=== PATIENT | male | born 1960 | race Caucasian/White ===

== ENCOUNTER 2023-05-06 10:07 | Emergency (ER) | payer OTHER, SELFPAY ==
[2023-05-06] VITALS (9 sets, daily range): BP systolic 68–151; BP diastolic 57–98; BMI 37.3
--- NOTE | 2023-05-06 11:00 | EDRN ---
the pt reports to this CREDIT CASHIER that on 04/25/23 he had radiation pellets placed in his liver. this CREDIT CASHIER contacted the lab and questioned what the proper procedure is for sending down blood and urine specimens for this pt due to the presence of
radiation pellets in his liver. agricultural technician sent up yellow caution stickers via pneumatic tube system for this CREDIT CASHIER to place on the biohazard specimen bags. agricultural technician also reported to this CREDIT CASHIER that she would notify the other lab techs of above. the
pts blood and urine specimen were collected and sent down to the lab by this CREDIT CASHIER as instructed.
--- NOTE | 2023-05-06 11:02 | ED.GENMED ---
History of Present Illness
<Kimberley Barrow PA-C - Last Filed: 05/07/23 09:06>
General
Chief Complaint: Back Pain
Source: patient
Exam Limitations: none
Time Seen by Provider: 05/06/23 10:31
Nursing documentation reviewed up to this point in time: agreed with
Travel History
Have you had any contact with someone who has COVID-19?: No
Do you have any symptoms of coronavirus? Fever > 100 degrees, chills, cough, shortness of breath, sore throat, loss of taste or smell, muscle aches, or headache?: No
History of Present Illness
History of Present Illness:
pt is a 62 y/o M with h /o remote alcohol abuse, esophageal varices s/p banding, hep c, s/p TIPS procedure, now with HCC
recently had procedure 04/24 for radiation treatment (hepatic artery radioembolization) nellie wei
says that a few days later he saw dr. trejo here for GI and at the time was telling him that he had some bloating in his lower abdomen that was minimal. pt says that he has had resolution of the bloated feeling but 3 days ago started getting R sided
back pain which is worse with changing positions
he took tylenol 650 mg bid which at this point isn't helping
his pain is worse with movement/sitting up and with deep breathing but he doesn't feel SOB
no urinary discoloration
pt called the office of nellie SPENCER andwas told to go to the ER to check for the cause of this pain
pt has not had any fever, chills, cp, sob, vomiting, diarrhea
Past History
<Kimberley Barrow PA-C - Last Filed: 05/07/23 09:06>
Past History
ED Past Medical History: Other (Hepatitis C with cirrhosis, ascites)
ED Past Surgical History: None
Social History
Tobacco: Smoker (has not in last 5 days)
Alcohol: Former (last was 10/2014)
Drug: None
Personal: Single
Living: with family
Review of Systems
<Kimberley Barrow PA-C - Last Filed: 05/07/23 09:06>
Review of Systems
Allergies reviewed?: Yes
All Other Systems: Not applicable
Phy Exam
<Kimberley Barrow PA-C - Last Filed: 05/07/23 09:06>
Physical Exam
Physical Exam:
GENERAL: Alert , in no apparent distress
EYE: pupils equal and reactive
NECK: Supple
ENT: o/p clr, mmm.
CARDIAC: Regular rate and rhythm .
LUNGS: Clear breath sounds bilaterally, no acute respiratory distress, no wheezes/rales/rhonchi
ABDOMEN: Soft, distended some ascites; periumbilical slight pink skin
mild RUQ tenderness
no guarding, nontender
no rebound
soft
back: right lower lateral lumbar tenderness
NEUROLOGICAL: Alert and oriented, no focal neuro deficits
SKIN: Warm and dry, skin intact.
erythatmeous papular rash to back;
MUSCULOSKELETAL: No edema, well perfused.
PSYCH: Normal and appropriate interaction.
Course
<Kimberley Barrow PA-C - Last Filed: 05/07/23 09:06>
Orders/Labs/Results
Orders:
Orders
05/06/23 10:57
CT Abd/Pel (IV only)-DH only Urgent
Comment:
Reason For Exam: right back pain; h/o hepatic artery radioembolizat
HYDROmorphone [Dilaudid] 0.5 mg IV NOW STA
05/06/23 11:13
Complete Blood Count/With Diff Urgent
Comprehensive Metabolic Panel Urgent
Lipase Urgent
PTT Urgent
Prothrombin Time Urgent
Urinalysis Reflex To Culture Urgent
Date Specimen was Collected: 05/06/23
Time Specimen was Collected: 11:01
05/06/23 14:45
Consult Interventional Radiology [IRAD CONSULT] Urgent
Consulting Provider: Ramsey Ordoñez
Was physician already notified: Yes
Reason for consult: para
05/06/23 15:35
Body Fluid Albumin Urgent
Fluid Source: Peritoneal (Ascites)
Date Specimen was Collected: 05/06/23
Time Specimen was Collected: 15:32
Body Fluid Amylase Urgent
Fluid Source: Peritoneal (Ascites)
Date Specimen was Collected: 05/06/23
Time Specimen was Collected: 15:32
Body Fluid Cell Count Urgent
What is the Body Fluid: peritoneal fluid
Date Specimen was Collected: 05/06/23
Time Specimen was Collected: 15:32
Comment: post procedure
Body Fluid LDH Urgent
Fluid Source: Peritoneal (Ascites)
Date Specimen was Collected: 05/06/23
Time Specimen was Collected: 15:32
Body Fluid Protein Urgent
Fluid Source: Peritoneal (Ascites)
Date Specimen was Collected: 05/06/23
Time Specimen was Collected: 15:32
Fluid Culture with Gram Stain Urgent
WINDY Source: Peritoneal Fluid
Specimen Description:
Date Specimen was Collected: 05/06/23
Time Specimen was Collected: 15:32
Comment: Post Procedure
Abnormal Lab Results
05/06/23
11:13
RDW 15.7 H %
(11.5-14.5)
MPV 11.3 H fL
(7.4-10.4)
Absolute Lymphs (auto) 0.2 L 10^3/uL
(1.2-3.4)
Absolute Monos (auto) 0.7 H 10^3/uL
(0.1-0.6)
Neutrophils % 83.0 H %
(42.2-75.2)
Lymphocytes % 2.6 L %
(20.5-51.1)
Monocytes % 11.9 H %
(1.7-9.3)
PT 15.1 H Sec
(11.4-14.6)
Sodium 134 L mmol/L
(135-145)
Creatinine 0.6 L mg/dL
(0.7-1.3)
Total Bilirubin 1.9 H mg/dl
(0.2-1.3)
AST 152 H U/L
(17-59)
ALT 89 H U/L
(0-50)
Alkaline Phosphatase 134 H U/L
(38-126)
Total Protein 6.2 L g/dl
(6.3-8.2)
Albumin 3.1 L g/dl
(3.5-5.0)
Lipase 314 H U/L
(23-300)
Urine Urobilinogen 2+ A
(Neg - 1+)
05/06/23 11:13
05/06/23 11:13
Vital Signs
Initial and Last Documented VS:
Initial Vital Signs
Temp Pulse Resp BP Pulse Ox
98.2 F 66 16 123/93 98
05/06/23 10:17 05/06/23 10:17 05/06/23 10:17 05/06/23 10:17 05/06/23 10:17
Last Documented Vital Signs
Temp Pulse Resp BP Pulse Ox
97.8 F 63 17 117/58 93
05/06/23 15:26 05/06/23 17:00 05/06/23 17:00 05/06/23 17:00 05/06/23 17:00
<JASON Kate - Last Filed: 05/06/23 23:22>
Orders/Labs/Results
Orders:
Orders
05/06/23 10:57
CT Abd/Pel (IV only)-DH only Urgent
Comment:
Reason For Exam: right back pain; h/o hepatic artery radioembolizat
HYDROmorphone [Dilaudid] 0.5 mg IV NOW STA
05/06/23 11:13
Complete Blood Count/With Diff Urgent
Comprehensive Metabolic Panel Urgent
Lipase Urgent
PTT Urgent
Prothrombin Time Urgent
Urinalysis Reflex To Culture Urgent
Date Specimen was Collected: 05/06/23
Time Specimen was Collected: 11:01
05/06/23 14:45
Consult Interventional Radiology [IRAD CONSULT] Urgent
Consulting Provider: Ramsey Ordoñez
Was physician already notified: Yes
Reason for consult: para
05/06/23 15:35
Body Fluid Albumin Urgent
Fluid Source: Peritoneal (Ascites)
Date Specimen was Collected: 05/06/23
Time Specimen was Collected: 15:32
Body Fluid Amylase Urgent
Fluid Source: Peritoneal (Ascites)
Date Specimen was Collected: 05/06/23
Time Specimen was Collected: 15:32
Body Fluid Cell Count Urgent
What is the Body Fluid: peritoneal fluid
Date Specimen was Collected: 05/06/23
Time Specimen was Collected: 15:32
Comment: post procedure
Body Fluid LDH Urgent
Fluid Source: Peritoneal (Ascites)
Date Specimen was Collected: 05/06/23
Time Specimen was Collected: 15:32
Body Fluid Protein Urgent
Fluid Source: Peritoneal (Ascites)
Date Specimen was Collected: 05/06/23
Time Specimen was Collected: 15:32
Fluid Culture with Gram Stain Urgent
WINDY Source: Peritoneal Fluid
Specimen Description:
Date Specimen was Collected: 05/06/23
Time Specimen was Collected: 15:32
Comment: Post Procedure
Abnormal Lab Results
05/06/23
11:13
RDW 15.7 H %
(11.5-14.5)
MPV 11.3 H fL
(7.4-10.4)
Absolute Lymphs (auto) 0.2 L 10^3/uL
(1.2-3.4)
Absolute Monos (auto) 0.7 H 10^3/uL
(0.1-0.6)
Neutrophils % 83.0 H %
(42.2-75.2)
Lymphocytes % 2.6 L %
(20.5-51.1)
Monocytes % 11.9 H %
(1.7-9.3)
PT 15.1 H Sec
(11.4-14.6)
Sodium 134 L mmol/L
(135-145)
Creatinine 0.6 L mg/dL
(0.7-1.3)
Total Bilirubin 1.9 H mg/dl
(0.2-1.3)
AST 152 H U/L
(17-59)
ALT 89 H U/L
(0-50)
Alkaline Phosphatase 134 H U/L
(38-126)
Total Protein 6.2 L g/dl
(6.3-8.2)
Albumin 3.1 L g/dl
(3.5-5.0)
Lipase 314 H U/L
(23-300)
Urine Urobilinogen 2+ A
(Neg - 1+)
05/06/23 11:13
05/06/23 11:13
Vital Signs
Initial and Last Documented VS:
Initial Vital Signs
Temp Pulse Resp BP Pulse Ox
98.2 F 66 16 123/93 98
05/06/23 10:17 05/06/23 10:17 05/06/23 10:17 05/06/23 10:17 05/06/23 10:17
Last Documented Vital Signs
Temp Pulse Resp BP Pulse Ox
97.8 F 63 17 117/58 93
05/06/23 15:26 05/06/23 17:00 05/06/23 17:00 05/06/23 17:00 05/06/23 17:00
<Kimberley Barrow PA-C - Last Filed: 05/07/23 09:06>
MDM/Problems Addressed
Differential Diagnosis Includes:
kidney stone, back pain, kidney injury, retroperitoneal hemorrhage, less likely SBP
MDM/Problems Addressed:
62 y/o M with h/o long standing cirrhosis, s/p TIPS, s/p esophageal banding
also semi recently dx with HCC
just had hepatic artery radioembolization 04/24
has had 3 days right sided lower back pain nonradiating
worse with changin position
he has chronic abdomianl distensino without increasing swelling/ascites
no fever, chills
pain is worse with movement and changing positino
caled the IR office and was instructed to come get evlauated
pt has bee followed by dr. trejo who is a [facility]/regulatory affairs coordinator who has office in [place]
he last saw ashlyn on 04/28.
pt was not having the pain at the time
no relief with tylenol
here he has a protuberant abdomen, with some ascites, soft, nontender, very faint pink skin changes to periumbilical region
moderate right lower back tenderness and pain with movement
normal strength/sensation IN LEGS
PT was seen by ed attending who felt that we should speak with his GI whom i spoke with dr. trejo
he reviewed my findings and labs and ct via phone and felt that we should do a diagonstic para to r/o SBP and if neg, d/c home
pt was reassessed at 1500 and feels ok lying on his left side pain returns if he moves
he was offered admission but would decline unless he needs it
do not suspect PE on this patient destpie pain being worse with deep breathing
seems MSK
signed out to obey BUSTOS 1600
<JASON Kate - Last Filed: 05/06/23 23:22>
MDM/Problems Addressed
MDM/Problems Addressed:
62 y/o M with h/o long standing cirrhosis, s/p TIPS, s/p esophageal banding
also semi recently dx with HCC
just had hepatic artery radioembolization 04/24
has had 3 days right sided lower back pain nonradiating
worse with changin position
he has chronic abdomianl distensino without increasing swelling/ascites
no fever, chills
pain is worse with movement and changing positino
caled the IR office and was instructed to come get evlauated
pt has bee followed by dr. trejo who is a [facility]/regulatory affairs coordinator who has office in [place]
he last saw hin on 04/28.
pt was not having the pain at the time
no relief with tylenol
here he has a protuberant abdomen, with some ascites, soft, nontender, very faint pink skin changes to periumbilical region
moderate right lower back tenderness and pain with movement
normal strength/sensation IN LEGS
PT was seen by ed attending who felt that we should speak with his GI whom i spoke with dr. trejo
he reviewed my findings and labs and ct via phone and felt that we should do a diagonstic para to r/o SBP and if neg, d/c home
pt was reassessed at 1500 and feels ok lying on his left side pain returns if he moves
he was offered admission but would decline unless he needs it
do not suspect PE on this patient destpie pain being worse with deep breathing
seems MSK
signed out to obey BUSTOS 1600
[id number]: received sign out. Pt back from IR. requesting to eat in no distress. Fluid WBC 150 fluid total protein less than 2.0 g/dL fluid albumin less than 1.0 g/dL fluid LDH less than 90 U/L. Patient currently only feels discomfort with twisting
turning likely muscular will send Flexeril to pt's pharmacy . Shakira GOMEZ
<JASON Kate - Last Filed: 05/06/23 23:22>
*Critical Care Note
Total Time (30-74mins, 75-104mins- exclusive of procedures): Not Applicable
ED Attending Note
<Kimberley Barrow PA-C - Last Filed: 05/07/23 09:06>
-
Portions of this chart may have been created with voice recognition software.� Occasional wrong word or��sound alike� substitutions may have occurred due to the inherent limitations of voice recognition software.
Discharge Plan
Departure
Patient Disposition: Home (Routine Discharge)
Date of Disposition: 05/06/23
Time of Disposition: 17:17
Patient with high blood pressure during this ER visit?: No
Condition: Fair
Covid-19: Not Applicable
Discharge Problem:
Back pain
Instructions: Back Pain, BLOOD PRESSURE
Prescriptions:
New
cyclobenzaprine 10 mg tablet
10 mg PO TID PRN (Reason: muscle spasm) Qty: 10 0RF
No Action
ciprofloxacin HCl 250 MG tablet
250 mg PO DAILY
Referrals:
Ranjeet Parnell DO [Family Provider] -
Activity Restrictions/Additional Instructions:
As discussed a prescription for Flexeril was sent to pharmacy. Take as directed.
Follow-up with family doctor in the next several days and also get in touch for follow up with your GI specialist at [facility]. Return to the ER if any worsening of symptoms of worsening pain shortness of breath nausea vomiting fever chills or
any further concerns
Interventions
Interventions:
*Risk Screen - Suicide Last Done: 05/06/23 10:20
*General Assessment Last Done: 05/06/23 10:20
*Neglect/Abuse Screening Last Done: 05/06/23 10:20
*ED COVID-19 Vaccine History Last Done: 05/06/23 11:24
*Nursing Disposition Last Done: 05/06/23 17:38
ED-Musculoskeletal Assessment Last Done: 05/06/23 11:24
Discharge Date and Time
Discharge Date/Time: 05/06/23 17:41
[2023-05-06] MEDS: DILAUDID 0.5 MG IV (11:18)
[2023-05-06 11:24] LABS: % Basophils 0.7 % (0-2); % Eosinophils 1.3 % (0-6); % Immature Granulocytes 0.5 % (0-0.5); % Lymphocytes 2.6 % (20.5-51.1); % Monocytes 11.9 % (1.7-9.3); Absolute Eosinophils 0.1 10^3/uL (0-0.7); Absolute Lymphocytes 0.2 10^3/uL (1.2-3.4); Absolute Monocytes 0.7 10^3/uL (0.1-0.6); Hematocrit 40.1 % (39.0-52.0); Mean Corp Hgb Conc. 34.9 g/dL (33.0-37.0); Mean Corpuscular Hgb 29.8 pg (27.0-31.0); Mean Corpuscular Volume 85.3 fL (80.0-94.0); Mean Platelet Volume 11.3 fL (7.4-10.4); Nucleated Red Blood Cells % 0 % (-); Platelet Count 133 10^3/uL (130-400); Red Cell Dist. Width 15.7 % (11.5-14.5); White Blood Cell Count 6.1 10^3/uL (4.8-10.8)
[2023-05-06 11:27] LABS: Urine Albumin Negative (Neg - Trace); Urine Bilirubin Negative (Negative); Urine Character Clear (Clear); Urine Color Yellow; Urine Glucose Negative (Negative); Urine Ketone Negative (Negative); Urine Leukocyte Negative (Negative); Urine Nitrite Negative (Negative); Urine Occult Blood Negative (Negative); Urine Specific Gravity 1.015 (<1.030); Urine Urobilinogen 2+ (Neg - 1+); Urine pH 6.5 (5.0-9.0)
[2023-05-06 11:41] LABS: INR 1.21; PT 15.1 Sec (11.4-14.6)
[2023-05-06 11:42] LABS: ALT (SGPT) 89 U/L (0-50); AST (SGOT) 152 U/L (17-59); Albumin 3.1 g/dl (3.5-5.0); Alkaline Phosphatase 134 U/L (38-126); Blood Urea Nitrogen 11 mg/dl (9-20); Calcium 8.5 mg/dl (8.4-10.2); Carbon Dioxide 24 mmol/L (22-30); Chloride 107 mmol/L (98-107); Estimated Creatinine Clearance > 125 ml/min; Glucose 99 mg/dl (70-99); Lipase 314 U/L (23-300); Potassium 4.2 mmol/L (3.5-5.1); Sodium 134 mmol/L (135-145); Total Bilirubin 1.9 mg/dl (0.2-1.3); Total Protein 6.2 g/dl (6.3-8.2); eGFR > 60.00
[2023-05-06 11:48] LABS: APTT 34.3 Sec (23.4-35.0)
[2023-05-06 15:58] LABS: Body Fluid Mononuclear 61.4 %; Body Fluid Polymorphonuclear 38.6 %; Body Fluid WBC 150 /CUMM
[2023-05-06 16:01] LABS: Body Fluid Second Tech BD
[2023-05-06 16:13] LABS: Body Fluid Albumin < 1.0 g/dl; Body Fluid Amylase < 30 U/L; Body Fluid LDH < 90 U/L; Body Fluid Protein < 2.0 g/dl
--- NOTE | 2023-05-06 17:04 | EDRN ---
the pt returned from Interventional Radiology while this CHAPERON was in another critically ill patients room. this CHAPERON did not receive any handoff reports from IR RN and found IR paperwork sitting at this ER RNs desk. The community artist was given
paperwork to scan into this patients electronic chart. this CHAPERON checked this pts paracentesis site in his RLQ abdomen. no bruising, swelling, or drainage noted. the bandage remains intact. the pt denies any complaints. ER JASON Nance was
notified of above. will continue to monitor the pt.
== END 2023-05-06 17:41 | disposition home or self-care (01) ==
LOC: EMR 10:07
PROVIDERS: Physician Assistant; CONSULT PHYSICIAN Radiology Vascular & Interventional Radiology; EMERGENCY PHYSICIAN Emergency Medicine; FAMILY PHYSICIAN Family Medicine
DX: M54.9 Dorsalgia, unspecified (principal); C22.0 Liver cell carcinoma
CPT/HCPCS: 99284; 96374; 49083; 74177; 80053; 81003; 82042; 82150; 83615; 83690; 84157; 85025; 85610; 85730; 87015; 87070; 87205; 89051; Q9967

== ENCOUNTER 2023-05-09 07:56 | Emergency (ER) | payer OTHER, SELFPAY ==
[2023-05-09 07:58] VITALS: BP 153/90
[2023-05-09 09:00] VITALS: BP 145/73
--- NOTE | 2023-05-09 09:17 | ED.GENMED ---
History of Present Illness
General
Chief Complaint: Abdominal Symptoms
Source: patient
Exam Limitations: none
Time Seen by Provider: 05/09/23 08:09
Nursing documentation reviewed up to this point in time: agreed with
Travel History
Have you had any contact with someone who has COVID-19?: No
Do you have any symptoms of coronavirus? Fever > 100 degrees, chills, cough, shortness of breath, sore throat, loss of taste or smell, muscle aches, or headache?: No
History of Present Illness
History of Present Illness:
Patient with history of liver cirrhosis, status post outpatient therapeutic paracentesis 3 days ago, presents to ED secondary to continual right-sided abdominal pain, for which he was evaluated in ED last week. Denies fever or chills. Abdominal
pain described as sharp, nonradiating, without any alleviating or exacerbating factors. Denies loss of appetite. Denies trauma. Denies difficulty with urination. Patient is concerned that he may have a 'pocket of fluid', which may need to be
drained.
Past History
Past History
ED Past Medical History: Other (Hepatitis C with cirrhosis, ascites)
ED Past Surgical History: None
Social History
Tobacco: Smoker (has not in last 5 days)
Alcohol: Former (last was 10/2014)
Drug: None
Personal: Single
Living: with family
Review of Systems
Review of Systems
Allergies reviewed?: Yes
All Other Systems: ROS reviewed and negative except as documented in HPI and ROS
Constitutional: Reports no symptoms
EENT: Reports no symptoms
Respiratory: Reports no symptoms
Cardiac: Reports no symptoms
ABD/GI: Reports abdominal pain; Denies nausea, vomiting or diarrhea
: Reports no symptoms; Denies frequency, flank pain or difficulty voiding
Musculoskeletal: Reports no symptoms
Skin: Reports no symptoms
Neurological: Reports no symptoms
Phy Exam
Physical Exam
Physical Exam:
Physical Exam
General: no apparent distress, not acutely ill. afebrile
Head: nc/at. eomi
Neck: supple. normal range of motion
Abdomen: normal bowel sounds. mild RUQ tenderness to palpation. no distention
Neuro: alert and oriented. no focal neurological deficits
Skin: no rash
Psychiatric: well kept. interactive and cooperative
Extremities: no edema. no calf tenderness.
Course
Orders/Labs/Results
Orders:
Orders
05/09/23 08:36
US Abdomen Complete/Upper Urgent
Comment:
Reason For Exam: RUQ pain
Vital Signs
Initial and Last Documented VS:
Initial Vital Signs
Temp Pulse Resp BP Pulse Ox
97.8 F 90 16 153/90 98
05/09/23 07:58 05/09/23 07:58 05/09/23 07:58 05/09/23 07:58 05/09/23 07:58
Last Documented Vital Signs
Temp Pulse Resp BP Pulse Ox
97.8 F 94 20 155/78 98
05/09/23 07:58 05/09/23 11:00 05/09/23 11:00 05/09/23 11:00 05/09/23 11:00
MDM/Problems Addressed
MDM/Problems Addressed:
History and exam, along with abdominal ultrasound confirms likely biliary colic. Otherwise, patient is afebrile, hemodynamically stable, and nontoxic. Patient will be given information for outpatient consultation with general surgery for
reevaluation. Advised to return to ED with worsening symptoms, i.e. fever/worsening pain/vomiting. Patient expresses understanding at time of discharge.
*Critical Care Note
Total Time (30-74mins, 75-104mins- exclusive of procedures): Not Applicable
ED Attending Note
-
Portions of this chart may have been created with voice recognition software.� Occasional wrong word or��sound alike� substitutions may have occurred due to the inherent limitations of voice recognition software.
Discharge Plan
Departure
Patient Disposition: Home (Routine Discharge)
Date of Disposition: 05/09/23
Time of Disposition: 11:34
Patient with high blood pressure during this ER visit?: Yes
Discharge Problem:
Biliary colic
Instructions: Low Cholesterol, Saturated Fat, and Trans Fat Diet , Gallstones (DC)
Prescriptions:
No Action
lisinopril 30 mg Tablet
30 mg PO DAILY
Referrals:
Ranjeet Parnell DO [Family Provider] -
Grant Parker MD [Active] -
Activity Restrictions/Additional Instructions:
As discussed, please follow-up with your primary care physician and or referred general surgeon for further evaluation and treatment. Please return to ED with worsening symptoms, i.e. fever/worsening pain/vomiting.
Interventions
Interventions:
*Risk Screen - Suicide Last Done: 05/09/23 11:54
*General Assessment Last Done: 05/09/23 09:00
*Neglect/Abuse Screening Last Done: 05/09/23 09:00
*ED COVID-19 Vaccine History Last Done: 05/09/23 07:58
*Nursing Disposition Last Done: 05/09/23 11:54
IH-Wxrzue-Kbdusxakdd Assessment Last Done: 05/09/23 09:00
Discharge Date and Time
Discharge Date/Time: 05/09/23 11:54
[2023-05-09 11:00] VITALS: BP 155/78
== END 2023-05-09 11:54 | disposition home or self-care (01) ==
LOC: EMR 07:56
PROVIDERS: EMERGENCY PHYSICIAN Emergency Medicine; FAMILY PHYSICIAN Family Medicine
DX: K80.70 Calculus of gallbladder and bile duct without cholecystitis without obstruction (principal); K74.60 Unspecified cirrhosis of liver; F17.200 Nicotine dependence, unspecified, uncomplicated
CPT/HCPCS: 99284; 76700

== ENCOUNTER → 2023-06-07 08:00 | Outpatient (REF) | payer OTHER, SELFPAY ==
[2023-06-07 08:15] VITALS: BP 160/82; BP_SYST 72
[2023-06-07 08:51] VITALS: BP 137/78
[2023-06-07 09:21] LABS: Body Fluid Mononuclear 63.3 %; Body Fluid Polymorphonuclear 36.7 %; Body Fluid WBC 49 /CUMM
[2023-06-07 09:25] LABS: Body Fluid Second Tech AMA
== END ==
LOC: RADI 08:00
PROVIDERS: ATTENDING PHYSICIAN Internal Medicine Transplant Hepatology
DX: R18.8 Other ascites (principal)
CPT/HCPCS: 49083; 87015; 87070; 87205; 89051

== ENCOUNTER → 2023-06-08 12:51 | Outpatient (REF) | payer OTHER, SELFPAY | LOC: RAD 12:51 | PROVIDERS: ATTENDING PHYSICIAN Internal Medicine Transplant Hepatology; FAMILY PHYSICIAN Family Medicine | DX: Z95.828 Presence of other vascular implants and grafts (principal) | CPT/HCPCS: 93975 ==

== ENCOUNTER → 2023-07-12 08:02 | Outpatient (REF) | payer OTHER, SELFPAY | LOC: MRI 08:02 | PROVIDERS: ATTENDING PHYSICIAN Nurse Practitioner Acute Care; FAMILY PHYSICIAN Family Medicine | DX: C22.0 Liver cell carcinoma (principal) | CPT/HCPCS: 74183; A9581 ==

== ENCOUNTER → 2023-09-20 09:02 | Outpatient (REF) | payer OTHER, SELFPAY | LOC: HWRAD 09:02 | PROVIDERS: ATTENDING PHYSICIAN Nurse Practitioner Acute Care; FAMILY PHYSICIAN Family Medicine; REFERRING PHYSICIAN Radiology Diagnostic Radiology | DX: C22.0 Liver cell carcinoma (principal) | CPT/HCPCS: 71250 ==

== ENCOUNTER → 2023-10-10 11:59 | Outpatient (REF) | payer OTHER, SELFPAY | LOC: MRI 3T 11:59 | PROVIDERS: ATTENDING PHYSICIAN Radiology Diagnostic Radiology; FAMILY PHYSICIAN Family Medicine | DX: C22.0 Liver cell carcinoma (principal) | CPT/HCPCS: 74183; A9581 ==

== ENCOUNTER 2024-02-11 00:04 | Inpatient (IN) | payer OTHER, SELFPAY ==
[2024-02-10] VITALS (8 sets, daily range): BP systolic 105–152; BP diastolic 53–84; BMI 34.4
[2024-02-10 14:59] LABS: % Basophils 0.6 % (0-2); % Eosinophils 0.9 % (0-6); % Immature Granulocytes 4.1 % (0-0.5); % Lymphocytes 3.1 % (20.5-51.1); % Monocytes 8.5 % (1.7-9.3); % Neutrophils 82.8 % (42.2-75.2); Absolute Basophils 0.1 10^3/uL (0-0.2); Absolute Eosinophils 0.1 10^3/uL (0-0.7); Absolute Immature Granulocytes 0.6 10^3/uL (0-0.05); Absolute Lymphocytes 0.5 10^3/uL (1.2-3.4); Absolute Monocytes 1.3 10^3/uL (0.1-0.6); Absolute Neutrophils 12.8 10^3/uL (1.4-6.5); Hematocrit 36.4 % (39.0-52.0); Hemoglobin 12.3 g/dL (13.0-18.0); Mean Corp Hgb Conc. 33.8 g/dL (33.0-37.0); Mean Corpuscular Hgb 29.2 pg (27.0-31.0); Mean Corpuscular Volume 86.5 fL (80.0-94.0); Nucleated Red Blood Cells % 0 % (-); Platelet Count 396 10^3/uL (130-400); Red Blood Cell Count 4.21 10^6/uL (4.70-6.10); Red Cell Dist. Width 16.5 % (11.5-14.5); White Blood Cell Count 15.5 10^3/uL (4.8-10.8)
[2024-02-10 15:06] LABS: INR 1.22; PT 15.9 Sec (11.4-14.6)
[2024-02-10 15:07] LABS: APTT 37.6 Sec (23.4-35.0)
[2024-02-10 15:16] LABS: COVID-19 Antigen Negative (Negative)
[2024-02-10 15:18] LABS: ALT (SGPT) 26 U/L (0-50); AST (SGOT) 46 U/L (17-59); Albumin 2.7 g/dl (3.5-5.0); Alkaline Phosphatase 195 U/L (38-126); Blood Urea Nitrogen 9 mg/dl (9-20); Calcium 7.9 mg/dl (8.4-10.2); Carbon Dioxide 24 mmol/L (22-30); Chloride 102 mmol/L (98-107); Glucose 80 mg/dl (70-99); Sodium 133 mmol/L (135-145); Total Bilirubin 18.3 mg/dl (0.2-1.3); Total Protein 6.6 g/dl (6.3-8.2); eGFR > 60.00
--- NOTE | 2024-02-10 20:21 | ED.GENMED ---
History of Present Illness
<Leanna Padilla MD - Last Filed: 02/10/24 20:22>
General
Chief Complaint: Breathing Problem
Time Seen by Provider: 02/10/24 19:15
<Dean Garcia PA-C - Last Filed: 02/10/24 23:25>
General
Source: patient
History of Present Illness
History of Present Illness:
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
and abnormal stools that been ongoing for around 1 week stating that when this all initially started his stools were very dark in color and then became white in color and then intermixed with both. Patient also notes that he had a fever for the
last 5 days with a Tmax of 101, today did not have any fever and did not take any medications for this. Patient is scheduled to undergo an MRI for monitoring of his liver cancer and TIPS procedure this coming Tuesday and he had been in contact with
his long-term providers at [facility] about his symptoms and was recommended to come to the ER for further evaluation. Patient also notes that his urine is a little bit darker in color and that he is jaundiced. He is presently denying any
associated abdominal pain, vomiting, urinary frequency/urgency or dysuria.
Past History
<Leanna Padilla MD - Last Filed: 02/10/24 20:22>
Past History
ED Past Medical History: Other (Hepatitis C with cirrhosis, ascites)
ED Past Surgical History: None
Social History
Tobacco: Smoker (has not in last 5 days)
Alcohol: Former (last was 10/2014)
Drug: None
Personal: Single
Living: with family
<Dean Garcia PA-C - Last Filed: 02/10/24 23:25>
Past History
ED Past Medical History: Cancer
ED Past Surgical History: Other (TIPS procedure)
Review of Systems
<Dean Garcia PA-C - Last Filed: 02/10/24 23:25>
Review of Systems
All Other Systems: ROS reviewed and negative except as documented in HPI and ROS
Phy Exam
<Dean Garcia PA-C - Last Filed: 02/10/24 23:25>
Physical Exam
Physical Exam:
GENERAL: Alert , in no apparent distress
EYE: Icteric sclera.
HEAD: NCAT
ENT: o/p clr, mmm.
CARDIAC: Regular rate and rhythm .
LUNGS: Clear breath sounds bilaterally, no acute respiratory distress, no wheezes/rales/rhonchi
ABDOMEN: Soft, without focal tenderness, no r/g, no cvat, No ascites
NEUROLOGICAL: Alert and oriented
SKIN: Warm and dry, skin intact.
MUSCULOSKELETAL: No edema, well perfused.
PSYCH: Normal and appropriate interaction.
Scores
<Dean Garcia PA-C - Last Filed: 02/10/24 23:25>
Heart Failure Risk
Heart Failure Risk Score: Not Applicable
Heart Score for Chest Pain Patients
STEMI patient?: Not applicable
Withdrawal Assessment of Alcohol
Withdrawal Assessment Completed?: Not applicable
Course
<Leanna Padilla MD - Last Filed: 02/10/24 20:22>
Orders/Labs/Results
Orders:
Orders
02/10/24 14:40
COVID-19 Antigen Urgent
Source: Nasal Swab
Complete Blood Count/With Diff Urgent
Comprehensive Metabolic Panel Urgent
PTT Urgent
Prothrombin Time Urgent
Influenza A+B Rapid Molecular Urgent
WINDY Source: Nasal Swab
Specimen Description:
02/10/24 19:26
CT Abd/pelvis W Iv Cont Urgent
Comment:
Reason For Exam: abnormal stools, elevated bilirubin, liver cancer
02/10/24 21:17
Piperacillin/Tazo 3.375 Gram [Zosyn] 3.375 gram in 50 ml IV NOW
02/10/24 21:20
Lactic Acid Q4H
Comment: CANCEL 2nd LACTIC ACID IF 1st LACTIC ACID IS LESS THAN 2
Blood Culture Q30M
WINDY Source: Blood/Venous
Specimen Description:
02/10/24 21:27
Blood Culture Q30M
WINDY Source: Blood/Venous
Specimen Description:
02/11/24 01:15
Lactic Acid Q4H
Comment: CANCEL 2nd LACTIC ACID IF 1st LACTIC ACID IS LESS THAN 2
Abnormal Lab Results
02/10/24
14:40
WBC 15.5 H 10^3/uL
(4.8-10.8)
RBC 4.21 L 10^6/uL
(4.70-6.10)
Hgb 12.3 L g/dL
(13.0-18.0)
Hct 36.4 L %
(39.0-52.0)
RDW 16.5 H %
(11.5-14.5)
Abs Immat Gran (auto) 0.6 H 10^3/uL
(0-0.05)
Absolute Neuts (auto) 12.8 H 10^3/uL
(1.4-6.5)
Absolute Lymphs (auto) 0.5 L 10^3/uL
(1.2-3.4)
Absolute Monos (auto) 1.3 H 10^3/uL
(0.1-0.6)
Immature Gran % 4.1 H %
(0-0.5)
Neutrophils % 82.8 H %
(42.2-75.2)
Lymphocytes % 3.1 L %
(20.5-51.1)
PT 15.9 H Sec
(11.4-14.6)
APTT 37.6 H Sec
(23.4-35.0)
Sodium 133 L mmol/L
(135-145)
Creatinine 0.6 L mg/dL
(0.7-1.3)
Calcium 7.9 L mg/dl
(8.4-10.2)
Total Bilirubin 18.3 H* mg/dl
(0.2-1.3)
Alkaline Phosphatase 195 H U/L
(38-126)
Albumin 2.7 L g/dl
(3.5-5.0)
02/10/24 14:40
02/10/24 14:40
Vital Signs
Initial and Last Documented VS:
Initial Vital Signs
Temp Pulse Resp BP Pulse Ox
97.8 F 81 22 152/65 96
02/10/24 14:26 02/10/24 14:26 02/10/24 14:26 02/10/24 14:26 02/10/24 14:26
Last Documented Vital Signs
Temp Pulse Resp BP Pulse Ox
98.3 F 87 16 106/59 93
02/10/24 18:00 02/10/24 22:00 02/10/24 22:00 02/10/24 21:21 02/10/24 22:00
<Dean Garcia PA-C - Last Filed: 02/10/24 23:25>
Orders/Labs/Results
Orders:
Orders
02/10/24 14:40
COVID-19 Antigen Urgent
Source: Nasal Swab
Complete Blood Count/With Diff Urgent
Comprehensive Metabolic Panel Urgent
PTT Urgent
Prothrombin Time Urgent
Influenza A+B Rapid Molecular Urgent
WINDY Source: Nasal Swab
Specimen Description:
02/10/24 19:26
CT Abd/pelvis W Iv Cont Urgent
Comment:
Reason For Exam: abnormal stools, elevated bilirubin, liver cancer
02/10/24 21:17
Piperacillin/Tazo 3.375 Gram [Zosyn] 3.375 gram in 50 ml IV NOW
02/10/24 21:20
Lactic Acid Q4H
Comment: CANCEL 2nd LACTIC ACID IF 1st LACTIC ACID IS LESS THAN 2
Blood Culture Q30M
WINDY Source: Blood/Venous
Specimen Description:
02/10/24 21:27
Blood Culture Q30M
WINDY Source: Blood/Venous
Specimen Description:
02/11/24 01:15
Lactic Acid Q4H
Comment: CANCEL 2nd LACTIC ACID IF 1st LACTIC ACID IS LESS THAN 2
Abnormal Lab Results
02/10/24
14:40
WBC 15.5 H 10^3/uL
(4.8-10.8)
RBC 4.21 L 10^6/uL
(4.70-6.10)
Hgb 12.3 L g/dL
(13.0-18.0)
Hct 36.4 L %
(39.0-52.0)
RDW 16.5 H %
(11.5-14.5)
Abs Immat Gran (auto) 0.6 H 10^3/uL
(0-0.05)
Absolute Neuts (auto) 12.8 H 10^3/uL
(1.4-6.5)
Absolute Lymphs (auto) 0.5 L 10^3/uL
(1.2-3.4)
Absolute Monos (auto) 1.3 H 10^3/uL
(0.1-0.6)
Immature Gran % 4.1 H %
(0-0.5)
Neutrophils % 82.8 H %
(42.2-75.2)
Lymphocytes % 3.1 L %
(20.5-51.1)
PT 15.9 H Sec
(11.4-14.6)
APTT 37.6 H Sec
(23.4-35.0)
Sodium 133 L mmol/L
(135-145)
Creatinine 0.6 L mg/dL
(0.7-1.3)
Calcium 7.9 L mg/dl
(8.4-10.2)
Total Bilirubin 18.3 H* mg/dl
(0.2-1.3)
Alkaline Phosphatase 195 H U/L
(38-126)
Albumin 2.7 L g/dl
(3.5-5.0)
02/10/24 14:40
02/10/24 14:40
Vital Signs
Initial and Last Documented VS:
Initial Vital Signs
Temp Pulse Resp BP Pulse Ox
97.8 F 81 22 152/65 96
02/10/24 14:26 02/10/24 14:26 02/10/24 14:26 02/10/24 14:26 02/10/24 14:26
Last Documented Vital Signs
Temp Pulse Resp BP Pulse Ox
98.3 F 87 16 106/59 93
02/10/24 18:00 02/10/24 22:00 02/10/24 22:00 02/10/24 21:21 02/10/24 22:00
Street Vendor consulted with Physician
Street Vendor consulted with physician?: Yes
Name of Physician Consulted: Randy
<Dean Garcia PA-C - Last Filed: 02/10/24 23:25>
MDM/Problems Addressed
Differential Diagnosis Includes:
Cholecystitis, liver abscess, ascending cholangitis, COVID or flu or other viral etiology, pancreatitis
MDM/Problems Addressed:
63-year-old male presenting the ER for evaluation of 4 to 5 days of fever, generalized malaise/fatigue, abnormal stool colors and dark urine. Patient noted to be significantly jaundiced on exam here. Hemodynamically stable. Labs initiated in
triage show a leukocytosis of 15,000 and a critical total bilirubin of 18.3. Patient put in for a stat CT of the abdomen and pelvis to further evaluate. Given lab abnormalities and chronic medical conditions I am most suspicious patient will be
admitted for further evaluation.
Chronic conditions affecting care: Cancer
Acute Exacerbation and/or Progression of Chronic Illness: Cancer
<Dean Garcia PA-C - Last Filed: 02/10/24 23:25>
*Radiology
Radiology exam reviewed: radiology read reviewed
*Pulse Oximetry
Patient hypoxic: no
*Critical Care Note
Total Time (30-74mins, 75-104mins- exclusive of procedures): Not Applicable
<Dean Garcia PA-C - Last Filed: 02/10/24 23:25>
Patient Management
Discussion with other providers: Hospitalist and Executive Search Consultant
Escalation/DeEscalation of care consider admission/obs:
Patient CT shows the following:
IMPRESSION:
Heterogeneous liver with a known 6.6 x 5.3 cm dominant mass within the right hepatic lobe. There are is increased heterogeneous appearance of the medial left hepatic lobe with new mild intrahepatic biliary ductal dilation. Findings may represent
new/worsening neoplasm. Consider MRI abdomen for further evaluation.
There is a 6.2 x 2.6 cm fluid focus within the dionne hepatis which exerts mild mass effect on the adjacent second portion the duodenum. This appears new from prior.
There are bibasilar opacities/chronic scarring.
Cholelithiasis.
TIPS present.
Hospitalist team accepts for continued evaluation and treatment. GI team was also notified. Zosyn ordered for antibiotic coverage. Patient otherwise remains hemodynamically stable. Lactic acid and blood cultures were ordered prior to antibiotics
being given.
ED Attending Note
<Leanna Padilla MD - Last Filed: 02/10/24 20:22>
ED Attending Note
Patient seen and examined by attending physician: Yes
I performed the substantive portion of visit, reviewed & personally made and approve the management plan that is documented in note by myself or GINNY.: Yes
ED Attending Note:
63-year-old male who says he felt weak and fatigued about 1-1/2 weeks ago but then started feel better. However, about 1 week ago he developed intense fatigue which continues associated with intermittent low-grade fever. His stools initially were
dark and are now clint colored associated with dark urine. His sister noted he is jaundiced for the last 3 days. He denies anorexia, abdominal pain, chest pain, back pain. He states 'I have no pain'. He denies abdominal distention and denies
weight gain. He denies vomiting or diarrhea. On exam, sclera icteric. Very comfortable no respiratory distress abdomen soft and nontender. Of note, patient did note mild dyspnea which is resolved at this time without associated cough.
-
Portions of this chart may have been created with voice recognition software.� Occasional wrong word or��sound alike� substitutions may have occurred due to the inherent limitations of voice recognition software.
Discharge Plan
Departure
Patient Disposition: Admit
Date of Disposition: 02/10/24
Time of Disposition: 21:18
Presentation/result/management discussed w/ accepting MD/DO: Hospitalist
Discharge Problem:
Ascending cholangitis
Prescriptions:
No Action
lisinopril 30 mg Tablet
30 mg PO DAILY
acetaminophen [Tylenol Extra Strength] 500 mg Tablet
1,000 mg PO Q6HPRN PRN (Reason: mild pain/fever)
Referrals:
Ranjeet Parnell DO [Family Provider] -
Interventions
Interventions:
*Risk Screen - Suicide Last Done: 02/10/24 14:27
*General Assessment Last Done: 02/10/24 18:42
*Neglect/Abuse Screening Last Done: 02/10/24 18:42
ED- Fall Risk Assessment Last Done: 02/10/24 18:40
ED- Cardiac Assessment Last Done: 02/10/24 18:40
ED- Pulmonary Assessment Last Done: 02/10/24 18:40
Discharge Date and Time
Print Language: NORTHERN IRISH
[2024-02-10 21:42] LABS: Lactic Acid 1.9 mmol/L (0.7-2.0)
[2024-02-10] MEDS: ZOSYN 50 IV (21:45)
--- NOTE | 2024-02-10 23:45 | HPS.HSE ---
Family Physician
-
Family Physician: Ranjeet Parnell, DO
Chief Complaint
-
Jaundice, Fatigue
History of Present Illness
Patient is a 63y M with PMH significant for cirrhosis and hepatocellular carcinoma who presents to ED complaining of generalized weakness and fatigue. Patient states that he started to feel poorly about 2 weeks ago. He reports intermittent,
overwhelming fatigue. He reports poor appetite, increased thirst, abdominal bloating. He denies any abdominal pain, chest pain, dyspnea or cough. He has had intermittent fevers at home (100 - 101) and shaking chills. He states that he has had
black stools x 2, one white colored stool and one of mixed black and white. No diarrhea. No BRBPR. No N/V.
Patient states that his urine has been 'bright orange' for the past two weeks as well.
About 3 days ago a family member noted that he appeared 'yellow'.
Today he continued to feel very weak and presented to the ED for further evaluation.
Patient has a history of alcoholic cirrhosis s/p TIPS procedure at [place] about 5-6 years ago.
He developed hepatocellular carcinoma about one year ago and is currently followed by Dr. Cobb.
He underwent XRT in July / August of this year - also at [place].
He recently completed re-certification at [place] for the liver transplant program.
Medical History
Past Medical History
Past Medical History: Reports Other
Additional Past Medical History:
Alcoholic Cirrhosis with Varices and Ascites
Hepatocellular Carcinoma
Hypertension
Past Surgical History: Reports Other
Additional Past Surgical History:
TIPS (5-6 years ago)
Umbilical Hernia Repair
Social History
Tobacco: Smoker (Current every day smoker. 1 ppd for total of > 40 pack years.)
Alcohol: Former (Sober x 8 years.)
Drug: None
Family History
Family History: Not pertinent
Allergies / Home Medications
Allergies reflects when Allergies were last updated in [facility].
Home Medications with original date entered in [facility]
Allergy/Medication List:
Allergies
Allergy/AdvReac Type Severity Reaction Status Date / Time
No Known Drug Allergies Allergy Unknown Verified 02/10/24 18:10
Home Medications
lisinopril 30 mg tablet 30 mg PO DAILY 05/09/23
acetaminophen 500 mg tablet (Tylenol Extra Strength) 1,000 mg PO Q6HPRN PRN mild pain/fever 02/10/24
Review of Systems
-
History Source: Patient
A 12 point ROS was completed and negative except as noted: Yes
Constitutional: Reports Fever, Fatigue and Chills
EENT: Denies Sore Throat or Runny Nose
Respiratory: Denies Cough or Trouble Breathing
Cardiac: Denies Chest Pain or Palpitations
Abdomen/GI: Reports Black Stools and Other (White stools); Denies Abdominal Pain, Nausea, Vomiting, Diarrhea or Constipated
: Reports Other (Waller urine.); Denies Dysuria or Flank Pain
Musculoskeletal: Denies Joint Pain or Edema
Skin: Reports Other (Yellow)
Neurological: Denies Dizzy or Headache
Psych: Denies Depression or Anxiety
Physical Exam
Vital Signs
Vital Signs
Temp Pulse Resp BP Pulse Ox
98.3 F 89 24 105/53 93
02/10/24 18:00 02/10/24 23:15 02/10/24 23:15 02/10/24 23:00 02/10/24 23:15
Physical Exam
General: Other (Grossly jaundiced 63y M in no acute distress.)
HEENT: Other (Dry MM. Neck supple.)
Respiratory: Clear; No Wheezes, Rales or Rhonchi
Cardiac: S1/S2 and Regular Rhythm; No Murmur
GI: Soft, Non Tender, Non Distended and Normal Bowel Sounds
Musculoskeletal: No Clubbing, No Cyanosis and No Edema
Neuro: AO x 3
Psych: No Confused
Laboratory Results
-
02/10/24 14:40
02/10/24 14:40
Laboratory Results
PT 15.9 Sec (11.4-14.6) H 02/10/24 14:40
INR 1.22 02/10/24 14:40
APTT 37.6 Sec (23.4-35.0) H 02/10/24 14:40
Lactic Acid 1.9 mmol/L (0.7-2.0) 02/10/24 21:20
Total Bilirubin 18.3 mg/dl (0.2-1.3) H* 02/10/24 14:40
AST 46 U/L (17-59) 02/10/24 14:40
ALT 26 U/L (0-50) 02/10/24 14:40
Alkaline Phosphatase 195 U/L (38-126) H 02/10/24 14:40
Impression/Plan
-
A/P: Patient is a 63y M with PMH significant for alcoholic cirrhosis s/p TIPS and hepatocellular carcinoma s/p XRT who presents to ED for evaluation of fatigue and jaundice.
Jaundice
Hepatocellular Carcinoma
Abdominal Fluid Collection
- Admit for further evaluation and treatment.
- IV abx for now for possible ascending cholangitis, etc.
- Fluid collection (6.2 x 2.6) is new from prior imaging and appears to exert mass effect on the duodenum.
- May benefit from IR drainage if accessible for fluid analysis / culture / etc.
- IV abx with Zosyn for now.
- GI evaluation for additional recommendations.
- Follow LFTs / bili.
- Follow for any clinical changes, development of fever, etc.
Melena
- Patient reports recent combination of black / white stools.
- Heme test stools.
- Follow H&H.
- IV PPI BID for now.
- GI evaluation as noted above.
Alcoholic Cirrhosis with Varices and Ascites - s/p TIPS
- Stable. s/p TIPS 5-6 years ago per patient.
- Sober x 8 years now.
- No significant accumulation of ascites on exam.
- No evidence of encephalopathy, etc.
Benign Hypertension
- Hold lisinopril acutely.
DVT Prophylaxis: SCDs
Code Status: Full
[2024-02-11] VITALS (7 sets, daily range): BP systolic 112–145; BP diastolic 40–69; BMI 33.9
[2024-02-11] MEDS: LR 1000 IV ×2 (02:36→16:06)
[2024-02-11] MEDS: ZOSYN 50 IV ×3 (03:19→15:57)
[2024-02-11 05:41] LABS: Hematocrit 32.4 % (39.0-52.0); Hemoglobin 11.5 g/dL (13.0-18.0); Mean Corp Hgb Conc. 35.5 g/dL (33.0-37.0); Mean Corpuscular Hgb 30.1 pg (27.0-31.0); Mean Corpuscular Volume 84.8 fL (80.0-94.0); Mean Platelet Volume 10.2 fL (7.4-10.4); Platelet Count 346 10^3/uL (130-400); Red Blood Cell Count 3.82 10^6/uL (4.70-6.10); Red Cell Dist. Width 16.2 % (11.5-14.5); White Blood Cell Count 17.8 10^3/uL (4.8-10.8)
[2024-02-11 06:13] LABS: ALT (SGPT) 22 U/L (0-50); AST (SGOT) 42 U/L (17-59); Albumin 2.2 g/dl (3.5-5.0); Alkaline Phosphatase 166 U/L (38-126); Blood Urea Nitrogen 7 mg/dl (9-20); Calcium 7.7 mg/dl (8.4-10.2); Carbon Dioxide 22 mmol/L (22-30); Chloride 103 mmol/L (98-107); Direct Bilirubin 14.4 mg/dl (0.0-0.4); Estimated Creatinine Clearance 118 ml/min; Glucose 92 mg/dl (70-99); Potassium 3.9 mmol/L (3.5-5.1); Sodium 133 mmol/L (135-145); Total Bilirubin 16.7 mg/dl (0.2-1.3); Total Protein 5.8 g/dl (6.3-8.2); eGFR > 60.00
[2024-02-11] MEDS: NSS (PRESERVATIVE FREE) 10 ML IV (07:46)
[2024-02-11] MEDS: PROTONIX IV 40 MG IV (07:46)
--- NOTE | 2024-02-11 08:11 | W.PN.HOSP.TC ---
Addendum entered and electronically signed by Ricky Oglesby MD 02/11/24 14:00:
Total time spent on d/c = 42 min. This included today's physical exam, progress note, review of laboratory and diagnostic data, preparation of discharge documents and prescriptions, and discussions about the pt's hospital course and discharge plan
with the patient and other medical billing and coding instructor involved in the patient's care.
Original Note:
Today's Communication/Plan
-
see bold
Assessment / Plan
Assessment / Plan
63y M with PMH significant for alcoholic cirrhosis s/p TIPS and hepatocellular carcinoma s/p XRT who presents to ED for evaluation of fatigue and jaundice.
Gen: NAD, AAOx3.
Eyes: EOMI, PERRLA, mod-severe scleral icterus.
Neck: supple.
CV: RRR, +S1/S2, no m/r/g.
Resp: CTAB, no rales, wheezes, or rhonchi.
Abd: +BS, soft, NT, ND
Skin: Spider angiomata on the chest, diffuse jaundice
Neuro: CN 2-12 intact, non-focal.
Psych: Normal mood and affect.
CT A/P: Heterogeneous liver with a known 6.6 x 5.3 cm dominant mass within the right hepatic lobe. There are is increased heterogeneous appearance of the medial left hepatic lobe with new mild intrahepatic biliary ductal dilation. Findings may
represent new/worsening neoplasm. Consider MRI abdomen for further evaluation. There is a 6.2 x 2.6 cm fluid focus within the dionne hepatis which exerts mild mass effect on the adjacent second portion the duodenum. This appears new from prior. There
are bibasilar opacities/chronic scarring. Cholelithiasis. TIPS present.
Jaundice
Hepatocellular Carcinoma
Abdominal Fluid Collection
-cont Zosyn
-c/s GI
-Fluid collection (6.2 x 2.6) is new from prior imaging and appears to exert mass effect on the duodenum.
-May benefit from IR drainage if accessible for fluid analysis / culture / etc.
-Trend LFTs
Melena:
-recent combination of black / white stools.
-Heme test stools.
-trend Hb
-cont IV PPI BID
-c/s GI
Alcoholic Cirrhosis with Varices and Ascites:
-s/p TIPS 5-6 years ago
-Sober x 8 years
Essential Hypertension: ACEi on hold
Obesity due to excess calories
FULL/SCDs
Anticipated Discharge: 24 - 48 hours
Subjective/Interval History
-
Date of Service: February 11, 2024
No acute complaints
Objective Data
-
Labs:
Laboratory Results
02/11/24
05:23
WBC 17.8 H
Hgb 11.5 L
Hct 32.4 L
Plt Count 346
Sodium 133 L
Potassium 3.9
Chloride 103
Carbon Dioxide 22
BUN 7 L
Creatinine 0.6 L
Glucose 92
Calcium 7.7 L
Total Bilirubin 16.7 H
AST 42
ALT 22
Alkaline Phosphatase 166 H
Vital Signs:
Vital Signs
Temp Pulse Resp BP Pulse Ox
98.1 F 95 18 118/59 98
02/11/24 07:21 02/11/24 07:21 02/11/24 07:21 02/11/24 07:21 02/11/24 07:21
I&O
02/10/24 02/11/24 02/12/24
06:59 06:59 06:59
Intake Total 930 / 930
Output Total 100 / 100
Balance 830 / 830
--- NOTE | 2024-02-11 12:24 | W.PN.UPDATE ---
Update Note
Progress Note Update
- IR requested to evaluate for possible percutaneous drainage of 6.2 cm elongated fluid collection within the dionne hepatis
- CT from 02/09 reviewed. Unfortunately no safe window for CT guided access. Possibly amenable to endoscopic aspiration but defer to GI
--- NOTE | 2024-02-11 13:53 | W.PN.UPDATE ---
Update Note
Progress Note Update
I spoke with [facility] clinical resource coordinator/liver transplant team at [facility]. Patient is accepted for inpatient transfer to [facility] for further care-accepting patient financial representative Dr.Jesse Obrien. discussed with medical team
--- NOTE | 2024-02-11 13:59 | W.PN.UPDATE ---
Addendum entered and electronically signed by Ricky Oglesby MD 02/11/24 14:26:
Total time spent on d/c = 35 min. This included today's physical exam, progress note, review of laboratory and diagnostic data, preparation of discharge documents and prescriptions, and discussions about the pt's hospital course and discharge plan
with the patient and other dental assistant medical assistant involved in the patient's care.
Original Note:
Update Note
Progress Note Update
Case discussed with Dr. Porter. The patient has been accepted by the transplant hepatology team at [facility], Dr. Satinder Obrien.
--- NOTE | 2024-02-11 14:09 | CM ---
Addendum entered by Lulu Wilson RN 02/11/24 15:26:
[facility] transfer team called and bed ready, Ambulance set up.
Original Note:
Alert awake oriented pt who lives with his sister Cely in a story home with 2 steps to enter and 14 steps to bd bathroom.Pt has Tp stents placed in liver at [place].He is being transferred to [facility] when bed ready.
No adaptive devices.
No VN/SNF hx.
[facility]
PCP Dr Parnell
Plan To [facility]
--- NOTE | 2024-02-11 14:41 | W.DCSUMMARY ---
Discharge Summary
Discharge Data
Date of Admission: 02/11/24
Date of Discharge: 02/11/24
-
Pending Results: No
Hospital Course
Primary diagnoses:
Abdominal fluid collection
Melena
Secondary diagnoses:
Alcoholic cirrhosis with varices and ascites s/p TIPS 5-6 years ago
Hepatocellular carcinoma
Essential hypertension
Obesity due to excess calories
Consults:
Gastroenterology
Imaging:
CT A/P: Heterogeneous liver with a known 6.6 x 5.3 cm dominant mass within the right hepatic lobe. There are is increased heterogeneous appearance of the medial left hepatic lobe with new mild intrahepatic biliary ductal dilation. Findings may
represent new/worsening neoplasm. Consider MRI abdomen for further evaluation. There is a 6.2 x 2.6 cm fluid focus within the dionne hepatis which exerts mild mass effect on the adjacent second portion the duodenum. This appears new from prior. There
are bibasilar opacities/chronic scarring. Cholelithiasis. TIPS present.
Hospital course: 63-year-old male who was admitted around 2344 on February 10, 2024 after presenting to the ER with chief complaints of weakness and fatigue. He was jaundiced and his bilirubin was noted to be 18. He had a history of alcoholic
cirrhosis with varices and ascites and undergone TIPS 5-6 years ago. Imaging above and was notable for a 6.2 x 2.6 cm fluid focus within the dionne hepatis which exerts mild mass effect on the adjacent second portion of the duodenum. Interventional
radiology evaluated the case and did not feel there was a safe window for drainage. The patient was empirically placed on Zosyn. He was seen in consultation by GI and it was recommended that the patient be transferred to [facility]. The patient
was accepted in transfer by Dr. Satinder Obrien of the transplant hepatology team at [facility].
Discharge Plan
-
Patient Disposition: Acute Care Hospital
Condition: Fair
Discharge Orders:
Discharge Patient (As Directed); Ordered 02/11/24
Ordered By: Ricky Oglesby
Discharge Date and Time
Print Language: RUSSIAN
--- NOTE | 2024-02-11 15:14 | CON.GI ---
Consultation
-
Date/Time Consultation Requested: 02/11/2024
Date/Time Consultation Performed: 02/11/2024
Requesting Provider: Hospitalist
Performing Provider: Arslan Ordaz
Reason for Consultation: Liver cirrhosis / HCC/ elevated liver test
Medical History
Chief Complaint / HPI
Chief Complaint: Jaundice/weakness
History of Present Illness:
63-year-old male with history of liver cirrhosis ( hx of TIPS ) with HCC (underwent XRT in july 2023 )currently following up with Dr. Cobb at [facility] is admitted with generalized weakness/fatigue for 2 weeks. Patient also reports he noted he
was turning yellow as well.. Intermittent fever at home with some chills. He also reported some black stools for few days last week then stool turned to be pale in color. Denies any abdominal pain/nausea/vomiting.
Past Medical History
Past Medical History: Other (Alcoholic Cirrhosis with Varices and Ascites Hepatocellular Carcinoma Hypertension)
Past Surgical History: Other (TIPS (5-6 years ago) Umbilical Hernia Repair)
Social History
Tobacco: Smoker
Alcohol: Former
Drug: None
Allergies / Home Medications
Allergy/AdvReac Type Severity Reaction Status Date / Time
No Known Drug Allergies Allergy Unknown Verified 02/10/24 18:10
�Medication �Instructions �Recorded
lisinopril 30 mg tablet 30 mg PO DAILY 05/09/23
acetaminophen 500 mg tablet 1,000 mg PO Q6HPRN PRN mild 02/10/24
(Tylenol Extra Strength) pain/fever
Review of Systems
-
All other systems: A 12 pt ROS was Negative except as stated above in HPI
Vital Signs
Temp Pulse Resp BP Pulse Ox
97.8 F 84 17 117/65 94
02/11/24 10:54 02/11/24 10:54 02/11/24 10:54 02/11/24 10:54 02/11/24 10:54
Physical Exam
Exam
General: No Apparent Distress
HEENT: Other (icteric)
Respiratory: Clear
Cardiac: S1/S2
GI: Soft, Non Tender, Non Distended and Normal Bowel Sounds
Neuro: AO x 3
Results
WBC 17.8 10^3/uL (4.8-10.8) H 02/11/24 05:23
Hgb 11.5 g/dL (13.0-18.0) L 02/11/24 05:23
Hct 32.4 % (39.0-52.0) L 02/11/24 05:23
MCV 84.8 fL (80.0-94.0) 02/11/24 05:23
Plt Count 346 10^3/uL (130-400) 02/11/24 05:23
Absolute Neuts (auto) 12.8 10^3/uL (1.4-6.5) H 02/10/24 14:40
PT 15.9 Sec (11.4-14.6) H 02/10/24 14:40
INR 1.22 02/10/24 14:40
APTT 37.6 Sec (23.4-35.0) H 02/10/24 14:40
Sodium 133 mmol/L (135-145) L 02/11/24 05:23
Potassium 3.9 mmol/L (3.5-5.1) 02/11/24 05:23
Chloride 103 mmol/L (98-107) 02/11/24 05:23
Carbon Dioxide 22 mmol/L (22-30) 02/11/24 05:23
BUN 7 mg/dl (9-20) L 02/11/24 05:23
Creatinine 0.6 mg/dL (0.7-1.3) L 02/11/24 05:23
Calcium 7.7 mg/dl (8.4-10.2) L 02/11/24 05:23
Total Bilirubin 16.7 mg/dl (0.2-1.3) H 12/28/24 05:23
AST 42 U/L (17-59) 02/11/24 05:23
ALT 22 U/L (0-50) 02/11/24 05:23
Alkaline Phosphatase 166 U/L (38-126) H 02/11/24 05:23
Diagnostic Image Results:
Prior GI Procedures:
EGD: 10/2022
Impression: - Normal esophagus.
- Gastritis. Biopsied.
- Normal examined duodenum. Biopsied.
Colonoscopy: 10/2022
Impression: - One 4 mm polyp in the rectum, removed with a cold
snare. Resected and retrieved.
- A few red spots in right colon that did not appear
to be true AVMs. The examination was otherwise normal.
Assessment / Plan
-
63-year-old male with history of liver cirrhosis status post TIPS, HCC finished XRT in July 2023 follow-up with Dr. Cobb at [facility] admitted with generalized weakness/fatigue/jaundice with intermittent fever for 2 weeks. He also reports dark
stool a week prior to admission then stool turned to be pale in color.
On admission
WBC 15.5/Hb 12.3/platelets 396
INR 1.22
Serum creatinine 0.6
AST 42/ALT 26/total bilirubin 18.3/alkaline phosphatase 195/albumin 2.7
CT abdomen/pelvis with IV contrast
IMPRESSION:
Heterogeneous liver with a known 6.6 x 5.3 cm dominant mass within the right hepatic lobe. There are is increased heterogeneous appearance of the medial left hepatic lobe with new mild intrahepatic biliary ductal dilation. Findings may represent
new/worsening neoplasm. Consider MRI abdomen for further evaluation.
There is a 6.2 x 2.6 cm fluid focus within the dionne hepatis which exerts mild mass effect on the adjacent second portion the duodenum. This appears new from prior.
There are bibasilar opacities/chronic scarring.
Cholelithiasis.
TIPS present.
-- hx of Liver cirrhosis s/ TIPS /HCC s/p XRT with decompensation/ sepsis -currently follow-up with Dr. Cobb at [facility] transplant hepatology
-- Prior Episode of melena. Currently denies any bleeding. Last EGD 2022-no varices documented.
plan
I discussed with care management coordinator/transplant hepatology team at [facility]. Transplant Hepatology Team is recommending inpatient transfer.
Continue IV antibiotic
Fluid collection not amenable for IR drainage.
Will get MRI abdomen while waiting for bed
Continue trend LFT/INR/CBC
Case discussed with hospitalist.
Total Time Spent with Patient (in minutes): 60
-
-
Thank you for consultation and allowing me to participate in the patient's care. Please call the home sales service professional GI physician during the after hours with any questions or concerns.
[2024-02-11] MEDS: AFLURIA (36 mos+) 2024-2025 FORMULA 0.5 ML IM (15:56)
== END 2024-02-11 18:27 | disposition short-term general hospital (02) | DRG 445 ==
LOC: 3 WEST ACU 00:04
PROVIDERS: Emergency Medicine; Physician Assistant Medical; ADMITTING PHYSICIAN Hospitalist; ATTENDING PHYSICIAN Internal Medicine; EMERGENCY PHYSICIAN Emergency Medicine; FAMILY PHYSICIAN Family Medicine; OTHER PHYSICIAN Internal Medicine Gastroenterology
PROC: 3E02340 Introduction of Influenza Vaccine into Muscle, Percutaneous Approach (ICD-10-PCS; 2024-02-11)
DX: K83.09 Other cholangitis (principal); C22.0 Liver cell carcinoma; I85.10 Secondary esophageal varices without bleeding; K92.1 Melena; E66.09 Other obesity due to excess calories; I10 Essential (primary) hypertension; F17.210 Nicotine dependence, cigarettes, uncomplicated; K70.31 Alcoholic cirrhosis of liver with ascites; F10.11 Alcohol abuse, in remission; Z11.52 Encounter for screening for COVID-19; Z23 Encounter for immunization; Z68.33 Body mass index [BMI] 33.0-33.9, adult; Z92.3 Personal history of irradiation
CPT/HCPCS: 74177; 80053; 82248; 83605; 85025; 85027; 85610; 85730; 87040; 87502; 87811; 90686; 96365; 99285; G0008; Q9967

== ENCOUNTER 2024-05-27 00:53 | Inpatient (IN) | payer OTHER, SELFPAY ==
[2024-05-26] VITALS (27 sets, daily range): BP systolic 82–136; BP diastolic 35–74; BMI 27.5
[2024-05-26 17:03] LABS: Hematocrit 22.6 % (39.0-52.0); Mean Corpuscular Hgb 25.8 pg (27.0-31.0); Mean Corpuscular Volume 83.4 fL (80.0-94.0); Platelet Count 384 10^3/uL (130-400); Red Blood Cell Count 2.71 10^6/uL (4.70-6.10); Red Cell Dist. Width 16.6 % (11.5-14.5); White Blood Cell Count 24.3 10^3/uL (4.8-10.8)
[2024-05-26 17:09] LABS: INR 1.54; PT 18.7 Sec (11.4-14.6)
[2024-05-26 17:10] LABS: APTT 34.9 Sec (23.4-35.0)
[2024-05-26 17:13] LABS: Ammonia 63 umol/L (9-30)
[2024-05-26 17:14] LABS: AST (SGOT) 80 U/L (17-59); Albumin 2.3 g/dl (3.5-5.0); Alkaline Phosphatase 239 U/L (38-126); Blood Urea Nitrogen 23 mg/dl (9-20); Calcium 8.7 mg/dl (8.4-10.2); Carbon Dioxide 18 mmol/L (22-30); Chloride 118 mmol/L (98-107); Glucose 151 mg/dl (70-99); Potassium 3.8 mmol/L (3.5-5.1); Sodium 147 mmol/L (135-145); Total Bilirubin 10.2 mg/dl (0.2-1.3); Total Protein 6.1 g/dl (6.3-8.2); eGFR > 60.00
[2024-05-26 17:24] LABS: Troponin I < 0.012 ng/ml
[2024-05-26 17:24] LABS: ALT (SGPT) 45 U/L (0-50)
[2024-05-26 17:27] LABS: % Basophils 0.2 % (0-2); % Eosinophils 0.4 % (0-6); % Immature Granulocytes 0.9 % (0-0.5); % Lymphocytes 2.3 % (20.5-51.1); % Neutrophils 93.2 % (42.2-75.2); Absolute Basophils 0.1 10^3/uL (0-0.2); Absolute Eosinophils 0.1 10^3/uL (0-0.7); Absolute Immature Granulocytes 0.2 10^3/uL (0-0.05); Absolute Lymphocytes 0.6 10^3/uL (1.2-3.4); Absolute Monocytes 0.7 10^3/uL (0.1-0.6); Absolute Neutrophils 22.6 10^3/uL (1.4-6.5); Nucleated Red Blood Cells % 0.2 % (-)
[2024-05-26 17:28] LABS: Anisocytosis 1+; Normal RBC Morphology No
[2024-05-26 17:29] LABS: Hypochromasia 2+; Microcytosis 1+; Schistocytes Slight; Target Cells 1+
[2024-05-26] MEDS: LR 1000 IV ×2 (17:34→20:15)
--- NOTE | 2024-05-26 17:38 | ED.GENMED ---
History of Present Illness
General
Chief Complaint: Male Genito-Urinary Symptoms
Time Seen by Provider: 05/26/24 16:43
History of Present Illness
History of Present Illness:
63-year-old male with history of alcoholic cirrhosis hepatocellular carcinoma presents to the emergency department for evaluation of generalized weakness, shortness of breath, melanotic stool, and dark urine. Timeline is vague, the patient states
it has been several days however his family indicates that he has been worsening for the past several weeks. Of note the patient was in this hospital in January where he was found to have an expansive liver mass with intrahepatic biliary ductal
dilation, he was then sent to [facility] for transplant hepatology management. I do not have these records immediately available but it sounds as though he had a biliary stent placed at that time. The patient also reportedly had 'some
procedure done' at [facility] involving the liver 2 weeks ago prior to his rapid decompensation. He denies cough alcohol use. He is a smoker. Does admit to frequent ibuprofen use
Past History
Past History
ED Past Medical History: Cancer and Other (Hepatitis C with cirrhosis, ascites)
ED Past Surgical History: Other (TIPS procedure)
Social History
Tobacco: Smoker (has not in last 5 days)
Alcohol: Former (last was 10/2014)
Drug: None
Personal: Single
Living: with family
Review of Systems
Review of Systems
Allergies reviewed?: Yes
All Other Systems: ROS reviewed and negative except as documented in HPI and ROS
Phy Exam
Physical Exam
Physical Exam:
GEN: Ill-appearing, disheveled, malodorous, markedly jaundiced
Eyes: PERRLA, EOMs intact, ++ scleral icterus
HENT: NCAT, oral mucosa dry, no JVD, no cervical adenopathy.
Lungs: Mildly tachypneic, no respiratory distress, faint crackles heard at the bases bilaterally
Cardiac: Tachycardic, regular no murmur
Abdomen: Flat, nondistended, no rigidity or tenderness
Rectal: Dried melanotic stool
Neuro: Somnolent but arouses to voice, oriented x 3, moves all extremities freely
MSK: No gross deformity or ecchymosis.
Skin: Severe jaundice. Dried stool under fingernails, melanotic
Psych: Calm, cooperative, disheveled
Course
Orders/Labs/Results
Orders:
Orders
05/26/24 16:27
Electrocardiogram (*1) Urgent
Reason for Study: Shortness of Breath
EKG- Treatment ONCE
05/26/24 16:29
CR Chest - 2 Views Urgent
Comment:
Reason For Exam: sob
05/26/24 16:44
Ammonia Urgent
Complete Blood Count/With Diff Urgent
Comprehensive Metabolic Panel Urgent
05/26/24 16:47
PTT Urgent
Prothrombin Time Urgent
Troponin I Urgent
05/26/24 17:12
0.9% Sodium Chloride 1000 ml [Nss] 1,000 ml IV BOLUS
05/26/24 17:14
Add On- LAB Urgent
Tests Added?: direct bilirubin
05/26/24 17:15
Lactated Ringers [Lr] 1,000 ml IV BOLUS
05/26/24 17:22
Type+Screen Urgent
Lactic Acid Q4H
Comment: CANCEL 2nd LACTIC ACID IF 1st LACTIC ACID IS LESS THAN 2
Blood Culture Q30M
WINDY Source: Blood/Venous
Specimen Description:
05/26/24 17:30
CT Chest/abd/pel W Iv Cont Urgent
Comment:
Reason For Exam: SOB, cough, increased jaundice, sepsis
05/26/24 17:31
Blood Bank Products [* Blood Bank Products] Urgent
Blood Bank Products: *Packed RBC Leuko(PRBC's)
Quantity: 2
Transfuse Today: Yes
Reason: Bleeding
05/26/24 17:42
Lactulose [Duphalac/Chronulac] 20 grams PO NOW STA
05/26/24 17:45
Blood Culture Q30M
WINDY Source: Blood/Venous
Specimen Description:
05/26/24 17:48
Pantoprazole [Protonix IV] 80 mg IV NOW STA
05/26/24 17:54
Urinalysis Reflex To Culture Urgent
Date Specimen was Collected: 05/26/24
Time Specimen was Collected: 17:53
Urine Microscopic Reflex Cult Urgent
Urine Culture Urgent
WINDY Source: U
Specimen Description:
Date Specimen was Collected: 05/26/24
Time Specimen was Collected: 17:53
05/26/24 18:00
Pantoprazole 80 mg/100 ml Nss [Protonix] 80 mg in 100 ml IV Q10H
05/26/24 18:21
Piperacillin/Tazo 3.375 Gram [Zosyn] 3.375 gram in 50 ml IV NOW
05/26/24 20:08
Lactated Ringers [Lr] 1,000 ml IV BOLUS
05/26/24 21:00
Albumin Human 5% 250 ml [Albumin 5%] 12.5 grams in 250 ml IV Q1H
05/26/24 21:15
Lactic Acid Q4H
Comment: CANCEL 2nd LACTIC ACID IF 1st LACTIC ACID IS LESS THAN 2
Abnormal Lab Results
05/26/24 05/26/24 05/26/24
16:44 16:47 17:22
WBC 24.3 H 10^3/uL
(4.8-10.8)
RBC 2.71 L 10^6/uL
(4.70-6.10)
Hgb 7.0 L g/dL
(13.0-18.0)
Hct 22.6 L %
(39.0-52.0)
MCH 25.8 L pg
(27.0-31.0)
MCHC 31.0 L g/dL
(33.0-37.0)
RDW 16.6 H %
(11.5-14.5)
MPV 11.0 H fL
(7.4-10.4)
Abs Immat Gran (auto) 0.2 H 10^3/uL
(0-0.05)
Absolute Neuts (auto) 22.6 H 10^3/uL
(1.4-6.5)
Absolute Lymphs (auto) 0.6 L 10^3/uL
(1.2-3.4)
Absolute Monos (auto) 0.7 H 10^3/uL
(0.1-0.6)
Immature Gran % 0.9 H %
(0-0.5)
Neutrophils % 93.2 H %
(42.2-75.2)
Lymphocytes % 2.3 L %
(20.5-51.1)
PT 18.7 H Sec
(11.4-14.6)
Sodium 147 H mmol/L
(135-145)
Chloride 118 H mmol/L
(98-107)
Carbon Dioxide 18 L mmol/L
(22-30)
BUN 23 H mg/dl
(9-20)
Glucose 151 H mg/dl
(70-99)
Lactic Acid 5.8 H* mmol/L
(0.7-2.0)
Total Bilirubin 10.2 H mg/dl
(0.2-1.3)
AST 80 H U/L
(17-59)
Alkaline Phosphatase 239 H U/L
(38-126)
Ammonia 63 H umol/L
(9-30)
Total Protein 6.1 L g/dl
(6.3-8.2)
Albumin 2.3 L g/dl
(3.5-5.0)
Urine Ketones
Ur Occult Blood Reflex
Urine Nitrite (Reflex)
Urine Bilirubin
Urine Urobilinogen
Leukocyte Esterase Rfl
Urine RBC
Urine WBC (Reflex)
Urine Bacteria (Reflex)
Urine Albumin (Reflex)
Crossmatch IS Only See Detail
05/26/24
17:54
WBC
RBC
Hgb
Hct
MCH
MCHC
RDW
MPV
Abs Immat Gran (auto)
Absolute Neuts (auto)
Absolute Lymphs (auto)
Absolute Monos (auto)
Immature Gran %
Neutrophils %
Lymphocytes %
PT
Sodium
Chloride
Carbon Dioxide
BUN
Glucose
Lactic Acid
Total Bilirubin
AST
Alkaline Phosphatase
Ammonia
Total Protein
Albumin
Urine Ketones 1+ A
(Negative)
Ur Occult Blood Reflex 3+ A
(Negative)
Urine Nitrite (Reflex) Positive A
(Negative)
Urine Bilirubin 3+ A
(Negative)
Urine Urobilinogen 3+ A
(Neg - 1+)
Leukocyte Esterase Rfl 3+ A
(Negative)
Urine RBC 3-6 A /HPF
(0-2)
Urine WBC (Reflex) >100 A /HPF
(0-5)
Urine Bacteria (Reflex) Moderate A
(Negative)
Urine Albumin (Reflex) 2+ A
(Neg - Trace)
Crossmatch IS Only
05/26/24 16:44
05/26/24 16:44
Vital Signs
Initial and Last Documented VS:
Initial Vital Signs
Temp Pulse Resp BP Pulse Ox
97.4 F 110 16 126/69 99
05/26/24 16:25 05/26/24 16:25 05/26/24 16:25 05/26/24 16:25 05/26/24 16:25
Last Documented Vital Signs
Temp Pulse Resp BP Pulse Ox
98.0 F 88 21 125/67 96
05/26/24 22:21 05/26/24 22:45 05/26/24 22:45 05/26/24 22:45 05/26/24 22:45
MDM/Problems Addressed
MDM/Problems Addressed:
On arrival patient is severely ill with hypotension and tachycardia as well as signs of sepsis. He was found to have severe leukocytosis which may be partially related to sepsis from UTI versus stress response versus hemoconcentration in the
setting of hypovolemia. He is also noted to have significant blood loss anemia most likely due to upper GI bleed in the setting of NSAID use and tobacco use. Patient was started on PPI infusion and bolus dose as well as blood transfusions and
crystalloid resuscitation. He was somewhat resistant to initial resuscitative measures and remained hypotensive thus was given IV albumin infusion with good results. Started on broad-spectrum IV antibiotics given the acute elevation of his total
bilirubin. Initially we held a discussion with [facility] hepatology who felt the patient did not require transfer however upon further review it was determined that the patient is scheduled for routine biliary stent exchange within the next
week and they felt the best that the patient come to their facility in order to be managed more comprehensively. He gradually improved in the emergency department with resuscitative measures
*Critical Care Note
Total Time (30-74mins, 75-104mins- exclusive of procedures): 115 minutes
comment:
Critical care time: 115 mins
Critical care time was exclusive of: Separately billable procedures, treating other patients, and teaching time
Critical care was necessary to treat or prevent imminent or life-threatening deterioration of the following conditions: hypovolemic shock, sepsis, blood loss anemia
Critical care time spent personally by me on the following activities:
[x] Review of old charts
[x] Obtaining history from patient or surrogate
[x] Ordering and review of the laboratory studies
[x] Ordering and review of radiographic studies
[x] Ordering and performing treatments and interventions
[x] Patient patient's response to treatment
[x] Development of treatment plan with patient or surrogate
ED Attending Note
-
Portions of this chart may have been created with voice recognition software.� Occasional wrong word or��sound alike� substitutions may have occurred due to the inherent limitations of voice recognition software.
Discharge Plan
Departure
Patient Disposition: Acute Care Hospital
Date of Disposition: 05/26/24
Time of Disposition: 20:29
Discharge Problem:
ABLA (acute blood loss anemia), Decompensated cirrhosis, Hyperalbuminemia, Urinary tract infection, Septic shock
Prescriptions:
No Action
melatonin 3 mg Tablet
3 mg PO HSPRN PRN (Reason: sleep)
Referrals:
Dandre Berg Jr., MD [Family Provider] -
Hospital Transfer
Other hospital: [facility]
I certify that the patient requires transfer: Yes
Discussed case with accepting physician: Mckenzie
Reason for transfer: higher level of care and continuity of care PCP
Interventions
Interventions:
*Risk Screen - Suicide Last Done: 05/26/24 16:27
*General Assessment Last Done: 05/26/24 16:30
*Neglect/Abuse Screening Last Done: 05/26/24 16:27
ED-Male Genitourinary Assessment Last Done: 05/26/24 17:41
Discharge Date and Time
Print Language: LITHUANIAN
[2024-05-26 17:50] LABS: Lactic Acid 5.8 mmol/L (0.7-2.0)
[2024-05-26 18:04] LABS: Urine Albumin 2+ (Neg - Trace); Urine Bilirubin 3+ (Negative); Urine Character Clear (Clear); Urine Color Yellow; Urine Glucose Negative (Negative); Urine Ketone 1+ (Negative); Urine Leukocyte 3+ (Negative); Urine Nitrite Positive (Negative); Urine Occult Blood 3+ (Negative); Urine Specific Gravity 1.015 (<1.030); Urine Urobilinogen 3+ (Neg - 1+)
[2024-05-26] MEDS: PROTONIX IV 80 MG IV (18:04)
[2024-05-26] MEDS: PROTONIX 100 IV (18:04)
[2024-05-26 18:15] LABS: Urine Bacteria Moderate (Negative); Urine White Cell >100 /HPF (0-5)
[2024-05-26 18:16] LABS: Urine Mucus Moderate
[2024-05-26] MEDS: ZOSYN 50 IV (19:15)
[2024-05-26] MEDS: ALBUMIN 5% 250 IV ×2 (21:20→22:37)
[2024-05-27] VITALS (26 sets, daily range): BP systolic 96–149; BP diastolic 52–92; BMI 28.5
--- NOTE | 2024-05-27 00:16 | HPS.HSE ---
Family Physician
-
Family Physician: Dandre Berg Jr., MD
Chief Complaint
-
Black urine
History of Present Illness
This is a 63-year-old male who has a past medical history significant for alcoholic cirrhosis complicated by portal hypertension status post TIPS, history of hepatocellular carcinoma, biliary obstruction status post stent placement presenting to the
emergency department with 2 days of black-colored urine.
Patient was only able to endorse that he started having dark-colored urine/black-colored urine 2 days ago. He denied having additional urinary symptoms such as frequency or urgency retention, dysuria flank pain nausea or vomiting or diaphoresis.
He denied having any fevers or chills. He states that he is not aware of any melena. He denies any coffee-ground emesis. He denies any bloody stools. He denies feeling dizzy or lightheaded. He reports that he was forced to the emergency
department by his sister. Patient reports that he is not taking any diuretics. He is unaware of taking any lactulose or rifaximin. He reports intermittent use of NSAIDs.
He denies any cough. He reports some shortness of breath over the last 2 to 3 days. He denies any chest pain or dyspnea on exertion. Patient does report intermittent use of NSAIDs. He denies alcohol use.
He was last admitted here in January for biliary obstruction and hepatic mass which could not be intervened upon here and patient was transferred to [place]. I do not have the records from [place] but patient stated that he did have a biliary
stent placed. He also had intrahepatic stents/procedure done as well which is unclear to me. He denied ever having to have paracentesis done. He denies being hospitalized since January.
In the emergency department today he was afebrile with a temp of 98, blood pressure was 130/60 with a pulse of 87. He was satting 95% on room air. He is chest x-ray shows chronic bibasilar opacities. He has a leukocytosis to 24, hemoglobin is
down to 7 with a platelet count of 384. INR was 1.5 and lactic acid was 6. Electrolytes with were remarkably stable with a sodium of 147, potassium of 3.8, bicarb of 18 BUN/creatinine of 22 and 0.7 respectively. His total bilirubin was 10.2, AST
80 ALT 40 and alk phos 240. His ammonia level was elevated at 63.
UA was markedly positive for urinary tract infection.
He had a CT of the abdomen pelvis with similar appearance to Darryl findings and minor changes. '1. There is similar appearance of the chronic airspace disease with consolidation and chronic atelectasis in the bilateral lower lobes. Superimposed
pneumonia would be difficult to exclude although is considered unlikely.
2. Cirrhotic morphology with a dominant mass in the right hepatic lobe measuring 6.7 x 5.2 cm, similar in appearance to prior.
3. Biliary stents present within the left hepatic lobe with intrahepatic ductal dilation, similar in appearance to prior.
4. There is small volume ascites with findings of portal hypertension including splenomegaly and numerous dilated collateral vessels in the upper abdomen.
5. There is mild gastric wall thickening with scattered areas of apparent wall thickening in the small bowel which may related to underdistention, ascites or represent mild gastroenteritis.
6. Prominent Schmorl's node along the superior endplate of L4, new from prior.'
Medical History
Past Medical History
Past Medical History: Reports Other
Additional Past Medical History:
Alcoholic Cirrhosis with Varices and Ascites
Hepatocellular Carcinoma
Hypertension
Past Surgical History: Reports Other
Additional Past Surgical History:
TIPS (5-6 years ago)
Umbilical Hernia Repair
Social History
Tobacco: Smoker (Current every day smoker. 1 ppd for total of > 40 pack years.)
Alcohol: Former (Sober x 8 years.)
Drug: None
Family History
Family History: Not pertinent
Allergies / Home Medications
Allergies reflects when Allergies were last updated in [employer].
Home Medications with original date entered in [employer]
Allergy/Medication List:
Allergies
Allergy/AdvReac Type Severity Reaction Status Date / Time
No Known Drug Allergies Allergy Unknown Verified 02/10/24 18:10
Home Medications
acetaminophen 500 mg tablet (Tylenol Extra Strength) 1,000 mg PO Q6HPRN PRN mild pain/fever 02/10/24
Review of Systems
-
History Source: Patient
Constitutional: Reports No Symptoms
EENT: Reports No Symptoms
Respiratory: Reports No Symptoms
Cardiac: Reports No Symptoms
Abdomen/GI: Reports No Symptoms
: Reports Dark Urine
Musculoskeletal: Reports No Symptoms
Skin: Reports No Symptoms
Neurological: Reports No Symptoms
Endocrine: Reports No Symptoms
Hematologic/Lymphatic: Reports No Symptoms
Psych: Reports No Symptoms
Physical Exam
Vital Signs
Vital Signs
Temp Pulse Resp BP Pulse Ox
98.0 F 85 23 119/60 96
05/26/24 22:21 05/27/24 00:00 05/27/24 00:00 05/27/24 00:00 05/27/24 00:00
Physical Exam
General: Comfortable and Appears Chronically Ill
HEENT: NormoCephalic, Anicteric, Moist mucous membranes and Atraumatic
Respiratory: Clear
Cardiac: S1/S2 and Regular Rhythm
Breast: Deferred by me
GI: Soft, Non Tender, Non Distended and Normal Bowel Sounds
Rectal: Hem Positive
Genito-urinary: Deferred by me
Musculoskeletal: No Clubbing, No Cyanosis and No Edema
Skin: Warm
Neuro: AO x 3 and Nonfocal/grossly intact
Hematologic/Lymphatic: No Lymphadenopathy
Psych: Calm
Laboratory Results
-
05/26/24 16:44
05/26/24 16:44
Laboratory Results
PT 18.7 Sec (11.4-14.6) H 05/26/24 16:47
INR 1.54 05/26/24 16:47
APTT 34.9 Sec (23.4-35.0) 05/26/24 16:47
Lactic Acid 5.8 mmol/L (0.7-2.0) H* 05/26/24 17:22
Lactic Acid Cancelled 05/26/24 17:22
Total Bilirubin 10.2 mg/dl (0.2-1.3) H 05/26/24 16:44
AST 80 U/L (17-59) H 05/26/24 16:44
ALT 45 U/L (0-50) 05/26/24 16:44
Alkaline Phosphatase 239 U/L (38-126) H 05/26/24 16:44
Troponin I < 0.012 ng/ml 05/26/24 16:47
Data Reviewed
-
Diagnostic Radiology: Image Personally Visualized and interpreted and Report Reviewed by me
CT Scan: Report Reviewed by me
Medical Tests (Nuc Med, Echo, EKG etc): Image Personally Visualized and interpreted
Lab Data: Labs Reviewed by me
Old Records: Requested and Reviewed
Impression/Plan
-
IMPRESSION:
63 y.o male with history of alcoholic liver cirrhosis, hepatocellular carcinoma, portal hypertension status post TIPS, recent biliary stenting [facility] presenting to the emergency department with 2 days of dark urine found to have
significant drop in hemoglobin to 7 from a baseline of around January, Hemoccult positive stool, found to have markedly positive urinalysis and a significant leukocytosis. Ammonia is elevated, total bilirubin is elevated 10.2, AST and ALT are
similar to prior. CT scan similar to prior showing known chronic airspace disease with superimposed pneumonia being unlikely, cirrhosis, dominant mass in the right hepatic lobe similar to prior, biliary stents within the left hepatic lobe with
intrahepatic ductal dilation similar to prior, small volume ascites with portal hypertension, mild gastric wall thickening consistent with gastritis. Picture suggests mL due to decompensation of cirrhosis in part secondary to a urinary tract
infection and also possibly secondary to GI bleed. He has remained hemodynamically stable and afebrile.
PLAN:
Cirrhosis decompensation - ? GI bleed, melena on rectal, Hgb down to 7. No current active bleeding. Ammonia elevated. Small ascites. MELD 3.0 = 22
- admit to IMU
- type and screen. 2 units pRBC given
- empiric ppi iv bid and octreotide for now
- start lactulose now, rifaximin per GI
- NPO except meds for now
- s/p 2L crystalloid and albumin, appropriate in setting of GI bleed,
- H&H q 8 hours for now
- abdominal exam benign with small ascites, unlikely etiology of decompensation, can consider diagnostic tap if febrile.
- GI consult.
UTI/Sepsis - + U/A, Tbili elevated. ? biliary obstruction though stents are inplace
- blood and urine cultures sent
- IV zosyn for now (also as ppx for cirrhotic gi bleed)
- GI consult as above
DVT PPX - SCDs
Code status - Full code
[2024-05-27] MEDS: ZOSYN 50 IV ×4 (02:15→20:51)
[2024-05-27] MEDS: D5LR 1000 IV ×2 (02:15→16:45)
[2024-05-27] MEDS: SANDOSTATIN 500.6 MCG IV ×2 (02:29→14:19)
[2024-05-27] MEDS: PROTONIX 100 IV ×3 (02:47→23:33)
--- NOTE | 2024-05-27 03:42 | PTCARENOTE ---
Assumed care of Pt from ED RN. Pt had both units of PRBC in ED and completed. Pt able to answer question appropriately at this time. Pt has no complaints at this time. Vitals stable at this time. Assessment are and vitals as charted.
[2024-05-27 05:11] LABS: Hematocrit 24.7 % (39.0-52.0); Hemoglobin 8.2 g/dL (13.0-18.0); Mean Corp Hgb Conc. 33.2 g/dL (33.0-37.0); Mean Corpuscular Hgb 27.5 pg (27.0-31.0); Mean Corpuscular Volume 82.9 fL (80.0-94.0); Mean Platelet Volume 11.4 fL (7.4-10.4); Platelet Count 284 10^3/uL (130-400); Red Blood Cell Count 2.98 10^6/uL (4.70-6.10); Red Cell Dist. Width 16.2 % (11.5-14.5); White Blood Cell Count 14.6 10^3/uL (4.8-10.8)
[2024-05-27 05:28] LABS: Lactic Acid 1.5 mmol/L (0.7-2.0)
[2024-05-27 05:29] LABS: ALT (SGPT) 32 U/L (0-50); AST (SGOT) 66 U/L (17-59); Albumin 2.1 g/dl (3.5-5.0); Alkaline Phosphatase 199 U/L (38-126); Blood Urea Nitrogen 19 mg/dl (9-20); Calcium 8.2 mg/dl (8.4-10.2); Carbon Dioxide 22 mmol/L (22-30); Chloride 119 mmol/L (98-107); Estimated Creatinine Clearance 97 ml/min; Glucose 76 mg/dl (70-99); Potassium 3.8 mmol/L (3.5-5.1); Sodium 147 mmol/L (135-145); Total Bilirubin 8.9 mg/dl (0.2-1.3); Total Protein 5.4 g/dl (6.3-8.2); eGFR > 60.00
--- NOTE | 2024-05-27 08:15 | CON.GI ---
Consultation
-
Date/Time Consultation Requested: 05/27/2024
Date/Time Consultation Performed: 05/27/2024
Requesting Provider: Dr Hahn
Performing Provider: Dr Dawn
Reason for Consultation: cirrhosis and anemia
Medical History
Chief Complaint / HPI
Chief Complaint: dark urine
History of Present Illness:
Judah is a 63yo M with h/o HCV/ETOH cirrhosis s/p TIPs 2015 with revision 06/2023 for recurrent ascites decompensated by HCC s/p Y90 and biliary stent 02/2024 from ? radiation induced cholangiopathy followed by Dr Cobb at [facility] who presents for
dark urine. He noticed not being able ot urinate well and urine being dark. He denies black or red blood in stools. He also felt fatigued and overall not well. He is not clear about his history but from chart in [facility] he had ERCP done 03/02/24 at
[facility] with CHD and LIHD take off strictures possible related to TARE (Transarterial radioembolization) with cholangioscopy bx and dilation of strictures. Two 7Fr plastic stents placed in LHD with repeat due May 2024. He reports having an appt
06/08/24 at [facility]. Path showed atypical cytology with acute inflammation. Currently he denies odynophagia dysphagia nausea/vomiting or abd pain. He lives with his sister Fredis and states that in past he was on transplant list but declined it
as he does not feel that he could tolerate a transplant.
Past Medical History
Past Medical History: Other (Hep C and ETOH cirrhosis MELD 22, esophageal varices, ascites, PSE, HCC, SBP, iron def anemia, OA, PVT Umbilical hernia, HTN CKD hep B core antibody +, bile duct stricture)
Past Surgical History: Other (TIPS 12/2015, Revision 06/2023, ERCP 02/14/2024 and 03/02/2024 umbilical hernia repair, EGD colonoscopy 2022)
Social History
Tobacco: Smoker
Alcohol: Former (Sober 8 years)
Drug: None
Living: With Family (lives with sister Fredis)
Allergies / Home Medications
Allergy/AdvReac Type Severity Reaction Status Date / Time
furosemide Allergy Unknown Rash Verified 05/26/24 21:11
No Known Drug Allergies Allergy Unknown Verified 02/10/24 18:10
�Medication �Instructions �Recorded
melatonin 3 mg tablet 3 mg PO HSPRN PRN sleep 05/26/24
Review of Systems
-
All other systems: A 12 pt ROS was Negative except as stated above in HPI
Vital Signs
Temp Pulse Resp BP Pulse Ox
98.2 F 72 18 115/58 96
05/27/24 08:00 05/27/24 08:00 05/27/24 08:00 05/27/24 08:00 05/27/24 08:00
Physical Exam
Exam
GEN: No acute distress, conversant, pleasant chronically ill appearing
HEENT: icteric, extraocular movements intact, clear oropharynx without exudates
GI: soft, obese, non-distended, not tender to palpation, normal active bowel sounds, no hepatosplenomegaly
EXT: warm, well perfused, trace edema bilaterally
NEURO: AAOx3, non-focal no asterixis forgetful at times
Results
WBC 14.6 10^3/uL (4.8-10.8) H 05/27/24 04:52
Hgb 8.2 g/dL (13.0-18.0) L 05/27/24 04:52
Hct 24.7 % (39.0-52.0) L 05/27/24 04:52
MCV 82.9 fL (80.0-94.0) 05/27/24 04:52
Plt Count 284 10^3/uL (130-400) D 05/27/24 04:52
Absolute Neuts (auto) 22.6 10^3/uL (1.4-6.5) H 05/26/24 16:44
PT 18.7 Sec (11.4-14.6) H 05/26/24 16:47
INR 1.54 05/26/24 16:47
APTT 34.9 Sec (23.4-35.0) 05/26/24 16:47
Sodium 147 mmol/L (135-145) H 05/27/24 04:52
Potassium 3.8 mmol/L (3.5-5.1) 05/27/24 04:52
Chloride 119 mmol/L (98-107) H 05/27/24 04:52
Carbon Dioxide 22 mmol/L (22-30) 05/27/24 04:52
BUN 19 mg/dl (9-20) 05/27/24 04:52
Creatinine 0.6 mg/dL (0.7-1.3) L 05/27/24 04:52
Calcium 8.2 mg/dl (8.4-10.2) L 05/27/24 04:52
Total Bilirubin 8.9 mg/dl (0.2-1.3) H 05/27/24 04:52
AST 66 U/L (17-59) H 05/27/24 04:52
ALT 32 U/L (0-50) 05/27/24 04:52
Alkaline Phosphatase 199 U/L (38-126) H 05/27/24 04:52
Diagnostic Image Results:
CTCAP IV contrast: 1. There is similar appearance of the chronic airspace disease with consolidation and chronic atelectasis in the bilateral lower lobes. Superimposed pneumonia would be difficult to exclude although is considered unlikely.
2. Cirrhotic morphology with a dominant mass in the right hepatic lobe measuring 6.7 x 5.2 cm, similar in appearance to prior.
3. Biliary stents present within the left hepatic lobe with intrahepatic ductal dilation, similar in appearance to prior.
4. There is small volume ascites with findings of portal hypertension including splenomegaly and numerous dilated collateral vessels in the upper abdomen.
5. There is mild gastric wall thickening with scattered areas of apparent wall thickening in the small bowel which may related to underdistention, ascites or represent mild gastroenteritis.
6. Prominent Schmorl's node along the superior endplate of L4, new from prior.
Prior GI Procedures:
10/2022 EGD: Dr Pillai gastritis
10/2022 Colonoscopy: Dr Pillai 4mm rectal polyp, few red spots in R colon not AVM
Assessment / Plan
-
Judah is a 63yo M with h/o Hep C/ETOH cirrhosis decompensated in past by ascites s/p TIPs, PSE, varices and HCC s/p Y90 TARE x2 last 05/2023 with bile duct stricture s/p ERCP x2 last 02/2024 at [facility] with biliary stent who presents for dark urine
and lactic acidosis.
Impression
- Sepsis with lactic acidosis
Source would be UTI. Other consideration is biliary
- Hep C/ETOH cirrhosis
MELD 22 on admission
Not clear if listed for OLT at [facility] with Dr Cobb
- Melena and anemia
Ddx includes PHG, varices or AVMs
S/p 2u PRBC on this admission
- HCC
s/p Y90 and TARE x2
- S/p TIPs
- Bile duct strictures thought related to TARE
s/p biliary stenting last 02/2024 next appt 06/08/24
- Small volume ascites
- H/o EV s/p banding
- HTN
- CKD
- Former smoker
Recommendations
- Abd US with doppler to ensure TIPs patency and assess to see if enough ascites to tap
- BC pending agree with abx
- UC pending
- JACOBO with black stools c/w PPI gtt, octreotide and abx
- Plan for EGD tomorrow
- Agree with transfer to [facility]
- If does not go tomorrow will update transplant center. It is not clear if patient is actively listed for OLT
- Monitor stool output
Will follow with you
Data Reviewed
-
CT Scan: Report Reviewed by me
-
-
Thank you for consultation and allowing me to participate in the patient's care. Please call the control clerk subassembly GI physician during the after hours with any questions or concerns.
[2024-05-27] MEDS: DUPHALAC/CHRONULAC 20 GRAMS PO ×3 (09:22→21:02)
--- NOTE | 2024-05-27 09:25 | CM ---
CM reviewed chart
Plan noted for transfer to [place] for acute blood loss and decompensated cirrhosis
Per chart review, pt resides with his sister in a 2SH with 1 LAN
14 steps to 2nd floor
Pt is indep and no ADs
CM will remain available for support and planning as needed
Discharge Disposition- transfer to [place]
--- NOTE | 2024-05-27 12:08 | W.PN.UPDATE ---
Addendum entered and electronically signed by Trell Umana MD 05/27/24 21:47:
bcx growing gpc. unfortunatly, only one set obtained opposed to the normal two while in the ED.
will order repeat bcx x2 now
2d echo
ruqus ultrasound/doppler
start vancomycin
id consult will need to be placed tomorrow
Original Note:
Update Note
Progress Note Update
Seen and examined at bedside.
Agree with GI consultation especially with complex history of biliary and hepatic cirrhosis with HCC and portal hypertension s/p TIPS.
Heme positive stools likely upper GI continue PPIs. Appears as though GI started a PPI drip. Could consider PPI IV twice daily 40
He is jaundiced at this time oriented x 3 however slow to answer
Agree with lactulose Zosyn and octreotide at this time
Agree with maintaining transfer to [facility] when bed available.
Transfer paperwork already completed by ED and scanned into chart
This is a nonbillable note
[2024-05-27 15:11] LABS: Hematocrit 25.9 % (39.0-52.0); Hemoglobin 8.5 g/dL (13.0-18.0)
--- NOTE | 2024-05-27 22:07 | PHA.VAN.IN ---
Assessment
- Assessment
Renal Function: Appears similar to baseline
Maximum Temperature: 98.2
Minimum Temperature: 97.4
Concomitant Antimicrobials: PIPERACILLIN/TAZOBACTAM
AUC Dosing Plan
- Dosing Variables
Dosing Weight (kg): 70.7
Dosing CrCl (ml/min): 97
Vd coefficient (L/kg): 0.7
- Empiric Dosing
Initial / Loading Dose: 1750MG ON 05/27
Maintenance Regimen: 1000MG Q12H
Estimated AUC (mcg*h/mL): 496
Estimated Peak (mcg*h/mL): 31.6
Estimated Trough (mcg/ml): 12.4
Estimated Half Life (H): 8.2
- Monitoring
No levels ordered at this time: Consider levels in next few days
Pharmacokinetics Vancomycin I
- -
Patient Age: 63
Patient Sex: Male
Vancomycin Day #: 1
Indication: Bacteremia
Requesting Provider: Trell Gillette
Pertinent Antimicrobial Allergies:
furosemide
Height / Weight:
Height 5 ft 2 in
Actual Weight 70.7 kg
- Vital Signs / Lab Results
Temp Pulse Resp BP Pulse Ox
97.9 F 83 22 140/69 94
05/27/24 20:11 05/27/24 21:00 05/27/24 21:00 05/27/24 21:00 05/27/24 21:02
Lab Results - Hematology
05/26/24 05/27/24
16:44 04:52
WBC 24.3 H 14.6 H
Lab Results - Chemistry
05/26/24 05/27/24
16:44 04:52
BUN 23 H 19
Creatinine 0.7 0.6 L
Estimated Creat Clear 97
Albumin 2.3 L 2.1 L
05/26/24 05/26/24 05/27/24
17:22 17:22 04:53
Lactic Acid 5.8 H* Cancelled 1.5
Lab Results - Urine
05/26/24
17:54
Urine Nitrite (Reflex) Positive A
Leukocyte Esterase Rfl 3+ A
Urine WBC (Reflex) >100 A
Ur Squamous Epith Cells 6-10
Urine Bacteria (Reflex) Moderate A
Microbiology Results
05/26/24 17:22 Blood Culture - Preliminary
Blood/Venous Positive culture in progress
Gram Stain - Preliminary
[2024-05-27] MEDS: VANCOCIN 535 MG IV (23:33)
[2024-05-28] VITALS (23 sets, daily range): BP systolic 114–166; BP diastolic 70–99
--- NOTE | 2024-05-28 01:08 | PTCARENOTE ---
Pt able to make needs known. Forgetful at times. Pt aware he is awaiting transfer to [place]. Pt having smears of stool, coloring is now brown. Vitals are stable at this time. Call reddy within reach. Bed alarm on. Assessment care and vitals as charted.
[2024-05-28] MEDS: ZOSYN 50 IV ×4 (02:27→20:40)
[2024-05-28] MEDS: SANDOSTATIN 500.6 MCG IV ×2 (02:27→14:08)
[2024-05-28 03:06] LABS: Hematocrit 22.8 % (39.0-52.0); Hemoglobin 7.5 g/dL (13.0-18.0); Mean Corp Hgb Conc. 32.9 g/dL (33.0-37.0); Mean Corpuscular Hgb 27.4 pg (27.0-31.0); Mean Corpuscular Volume 83.2 fL (80.0-94.0); Mean Platelet Volume 11.3 fL (7.4-10.4); Platelet Count 276 10^3/uL (130-400); Red Blood Cell Count 2.74 10^6/uL (4.70-6.10); Red Cell Dist. Width 16.4 % (11.5-14.5); White Blood Cell Count 10.9 10^3/uL (4.8-10.8)
--- NOTE | 2024-05-28 03:06 | PTCARENOTE ---
Pt monitor alerting to a 'VT' run of 10 beats. Night KNURLING MACHINE OPERATOR made aware. Morning labs obtained early. Pt asymptomatic, vitals stable at this time.
[2024-05-28 03:29] LABS: Blood Urea Nitrogen 17 mg/dl (9-20); Calcium 7.6 mg/dl (8.4-10.2); Carbon Dioxide 23 mmol/L (22-30); Chloride 117 mmol/L (98-107); Estimated Creatinine Clearance 97 ml/min; Glucose 98 mg/dl (70-99); Magnesium 1.9 mg/dl (1.6-2.3); Potassium 3.5 mmol/L (3.5-5.1); Sodium 145 mmol/L (135-145); eGFR > 60.00
[2024-05-28 06:58] LABS: ALT (SGPT) 32 U/L (0-50); AST (SGOT) 77 U/L (17-59); Alkaline Phosphatase, Total 193 U/L (38-126); Direct Bilirubin 7.5 mg/dl (0.0-0.4); Total Bilirubin 9.7 mg/dl (0.2-1.3)
--- NOTE | 2024-05-28 07:35 | W.PN.HOSP.TC ---
Addendum entered and electronically signed by Coleen العلي MD 05/28/24 17:44:
blood culture shows coag negative staph
repeat from yesterday (pre-Vanc) without growth
if blood cultures remain negative tomorrow will stop IV Vanc
Original Note:
Today's Communication/Plan
-
see plan
pending transfer to [place]
Assessment / Plan
Assessment / Plan
This is a 63-year-old male who has a past medical history significant for alcoholic cirrhosis complicated by portal hypertension status post TIPS, history of hepatocellular carcinoma, biliary obstruction status post stent placement presenting to the
emergency department with 2 days of black-colored urine. He is found to have significant drop in hemoglobin to 7 from a baseline of around January, Hemoccult positive stool, found to have markedly positive urinalysis and a significant
leukocytosis. Ammonia is elevated, total bilirubin is elevated 10.2, AST and ALT are similar to prior.
He had a CT of the abdomen pelvis with similar appearance to Darryl findings and minor changes. '1. There is similar appearance of the chronic airspace disease with consolidation and chronic atelectasis in the bilateral lower lobes. Superimposed
pneumonia would be difficult to exclude although is considered unlikely.
2. Cirrhotic morphology with a dominant mass in the right hepatic lobe measuring 6.7 x 5.2 cm, similar in appearance to prior.
3. Biliary stents present within the left hepatic lobe with intrahepatic ductal dilation, similar in appearance to prior.
4. There is small volume ascites with findings of portal hypertension including splenomegaly and numerous dilated collateral vessels in the upper abdomen.
5. There is mild gastric wall thickening with scattered areas of apparent wall thickening in the small bowel which may related to underdistention, ascites or represent mild gastroenteritis.
6. Prominent Schmorl's node along the superior endplate of L4, new from prior.'
PLAN:
Cirrhosis decompensation - ? GI bleed, melena on rectal, Hgb down to 7. No current active bleeding. Ammonia elevated. Small ascites. MELD 3.0 = 22
- admit to IMU; pending transfer to [place]
- GI consult appreciated
- s/p 2L crystalloid and albumin
- s/p 2 units PRBC, Hg 7.5 this AM; repeat at 10AM
- empiric ppi iv bid and octreotide
- per GI, plan for EGD
- abd US doppler ordered
- continue lactulose, rifaximin
- NPO except meds
- abdominal exam benign with small ascites, unlikely etiology of decompensation, can consider diagnostic tap if febrile.
UTI/Sepsis - + U/A, Tbili elevated. ? biliary obstruction though stents are inplace
- blood and urine cultures sent
- IV zosyn for now (also as ppx for cirrhotic gi bleed)
- GI consult as above
Positive blood culture - per report probably coagulase negative staph
-blood cultures repeated
-continue IV Vanc until speciation
-possible contaminant
DVT PPX - SCDs
Code status - Full code
Anticipated Discharge: Within 24 hours
Subjective/Interval History
-
Date of Service: May 28, 2024
denies pain or shortness of breath
had black stools then brown
Objective Data
-
Labs:
Laboratory Results
05/28/24
02:40
WBC 10.9 H
Hgb 7.5 L
Hct 22.8 L
Plt Count 276
Sodium 145
Potassium 3.5
Chloride 117 H
Carbon Dioxide 23
BUN 17
Creatinine 0.6 L
Glucose 98
Calcium 7.6 L
Total Bilirubin 9.7 H
AST 77 H
ALT 32
Vital Signs:
Vital Signs
Temp Pulse Resp BP Pulse Ox
98.2 F 74 25 145/92 92
05/28/24 07:34 05/28/24 05:00 05/28/24 05:00 05/28/24 05:00 05/28/24 04:00
I&O
05/27/24 05/28/24 05/29/24
06:59 06:59 06:59
Intake Total 1086.8 / 1086.8 3256.8 / 3256.8
Output Total 500 / 500 800 / 800 100 / 100
Balance 586.8 / 586.8 2456.8 / 2456.8 -100 / -100
Review of Systems
-
History Source: Patient
All other systems: Reviewed and negative
Physical Exam
-
General: Appears Chronically Ill and Other (mildly tachypneic )
HEENT: PERRLA and Other (scleral icterus )
Respiratory: Negative Wheezes
Cardiac: S1/S2
GI: Soft and Nontender
Musculoskeletal: No Edema
Skin: Warm and Dry; Negative Rash
Neuro: AO x 3
Psych: Calm
Data Reviewed
-
Diagnostic Radiology: Report Reviewed by me
Labs: Labs Reviewed by me
[2024-05-28] MEDS: D5LR 1000 IV (08:30)
[2024-05-28] MEDS: PROTONIX 100 IV ×2 (08:32→20:40)
[2024-05-28] MEDS: VANCOCIN 200 IV ×2 (08:35→18:10)
[2024-05-28] MEDS: DUPHALAC/CHRONULAC 20 GRAMS PO ×3 (08:36→23:12)
[2024-05-28 08:50] LABS: Alk Phos After Heat 110; Alkaline Phosphatase Percent 56.99
[2024-05-28 10:16] LABS: Hemoglobin 8.2 g/dL (13.0-18.0)
--- NOTE | 2024-05-28 10:39 | PTCARENOTE ---
Assumed care of patient this morning. He is aaox2, disoriented to time. He has no complaints, denies any pain. Pt does appear slightly short of breath but pt denies and reports that it is only while he is on the bedpan because it hurts his back. Pt
on 1L NC, attempting to wean off of O2. Pt still having liquid black/dark brown stool. Pt is continent but patient goes approx., every hour. Pt able to use urinal himself, pt voding small amounts at a time. Skin is all intact. Assessment, care and
VS as charted.
--- NOTE | 2024-05-28 11:28 | PHA.VAN.FU ---
Vancomycin Assessment / Plan
- Assessment
Renal Function: Stable (0.6)
WBC's are: Trending Down (14.6->10.9)
In the past 24 hrs, patient has been: Afebrile
Concomitant Antimicrobials: Piperacillin/Tazobactam
- Dosing Plan
Continue: Vanco 1000mg Q12H
- Monitoring Plan
No level(s) ordered at this time: Consider in the next few days
- Follow Up
Pharmacy will continue to follow.
Vancomycin Follow UP
- -
Patient Age: 63
Patient Sex: Male
Vancomycin Day #: 2
Indication: Bacteremia
Requesting Provider: Trell Gillette
Pertinent Antimicrobial Allergies:
furosemide
Height / Weight:
Height 5 ft 2 in
Actual Weight 70.7 kg
- Vital Signs / Lab Results
Temp Pulse Resp BP Pulse Ox
98.0 F 82 25 147/86 92
05/28/24 11:08 05/28/24 10:00 05/28/24 10:00 05/28/24 10:00 05/28/24 10:00
Lab Results - Hematology
05/26/24 05/27/24 05/28/24
16:44 04:52 02:40
WBC 24.3 H 14.6 H 10.9 H
Lab Results - Chemistry
05/26/24 05/27/24 05/28/24
16:44 04:52 02:40
BUN 23 H 19 17
Creatinine 0.7 0.6 L 0.6 L
Estimated Creat Clear 97 97
Albumin 2.3 L 2.1 L
05/26/24 05/26/24 05/27/24
17:22 17:22 04:53
Lactic Acid 5.8 H* Cancelled 1.5
Microbiology Results
05/26/24 17:22 Blood Culture - Preliminary
Blood/Venous Positive culture in progress
Gram Stain - Preliminary
--- NOTE | 2024-05-28 11:40 | PTCARENOTE ---
Spoke with [facility] for updated VS and questions answered. No bed available at this time.
--- NOTE | 2024-05-28 13:40 | PTCARENOTE ---
Patient returned from GI lab. Patient drowsy but arousable and oriented to baseline, x2. Pt put on 2LNC in PACU, pt only 94%, will maintain. Pt incontinent during procedure, pericare performed. Pt allowed CLD per , IVF discontinued. Vital signs
stable.
--- NOTE | 2024-05-28 15:21 | PTCARENOTE ---
Patient downgraded to M/S. [facility] on new level of care, #[phone].
[2024-05-28] MEDS: KCL 260 MEQ IV (15:42)
[2024-05-28 20:16] LABS: Hemoglobin 8.4 g/dL (13.0-18.0)
[2024-05-28] MEDS: DUONEB 3 ML INH (20:49)
--- NOTE | 2024-05-28 21:01 | PTCARENOTE ---
Pt repeat H&H 7.5/22.8. Pt requiring 2l o2 to keep SPo2 above 90%. Current SPO2 93% on 2L. Pt B/L lungs throughout scattered Rhonchi with expiatory wheeze in bases. NEBs ordered by BULK PLANT OPERATOR. Vitals stable at this time. P has no complaints at this time.
Call reddy within reach, bed alarm on.
[2024-05-29] VITALS (14 sets, daily range): BP systolic 125–159; BP diastolic 63–85
[2024-05-29] MEDS: DUONEB 3 ML INH ×2 (02:36→14:22)
[2024-05-29] MEDS: ZOSYN 50 IV ×2 (03:14→10:54)
[2024-05-29] MEDS: SANDOSTATIN 500.6 MCG IV (03:35)
[2024-05-29 05:36] LABS: Hematocrit 23.7 % (39.0-52.0); Hemoglobin 7.8 g/dL (13.0-18.0); Mean Corp Hgb Conc. 32.9 g/dL (33.0-37.0); Mean Corpuscular Hgb 27.5 pg (27.0-31.0); Mean Corpuscular Volume 83.5 fL (80.0-94.0); Mean Platelet Volume 10.8 fL (7.4-10.4); Platelet Count 248 10^3/uL (130-400); Red Blood Cell Count 2.84 10^6/uL (4.70-6.10); Red Cell Dist. Width 17.1 % (11.5-14.5); White Blood Cell Count 11.2 10^3/uL (4.8-10.8)
[2024-05-29] MEDS: VANCOCIN 200 IV (06:03)
[2024-05-29] MEDS: PROTONIX 100 IV (06:03)
[2024-05-29 06:12] LABS: ALT (SGPT) 32 U/L (0-50); AST (SGOT) 67 U/L (17-59); Albumin 1.8 g/dl (3.5-5.0); Alkaline Phosphatase 222 U/L (38-126); Blood Urea Nitrogen 6 mg/dl (9-20); Calcium 7.3 mg/dl (8.4-10.2); Carbon Dioxide 23 mmol/L (22-30); Chloride 109 mmol/L (98-107); Direct Bilirubin 9.6 mg/dl (0.0-0.4); Estimated Creatinine Clearance 97 ml/min; Glucose 110 mg/dl (70-99); Potassium 3.1 mmol/L (3.5-5.1); Sodium 140 mmol/L (135-145); Total Protein 5.5 g/dl (6.3-8.2); eGFR > 60.00
[2024-05-29] MEDS: KCL 270 MEQ IV (08:34)
[2024-05-29] MEDS: DUPHALAC/CHRONULAC 20 GRAMS PO (08:35)
--- NOTE | 2024-05-29 08:44 | PHA.VAN.FU ---
Vancomycin Assessment / Plan
- Assessment
Renal Function: Stable (0.5)
WBC's are: Trending Up (10.9->11.2)
In the past 24 hrs, patient has been: Afebrile
Concomitant Antimicrobials: Piperacillin/Tazobactam
- Dosing Plan
Continue: Vanco 1000mg Q12H
- Monitoring Plan
Peak Level: 05/29/24 2100
Trough Level: 05/30/24 0530
Monitoring Comments: levels to be drawn after 4th maintenance dose
- Follow Up
Pharmacy will continue to follow.
Vancomycin Follow UP
- -
Patient Age: 63
Patient Sex: Male
Vancomycin Day #: 3
Indication: Bacteremia
Requesting Provider: Trell Gillette
Pertinent Antimicrobial Allergies:
furosemide
Height / Weight:
Height 5 ft 2 in
Actual Weight 70.7 kg
- Vital Signs / Lab Results
Temp Pulse Resp BP Pulse Ox
98.3 F 82 27 145/75 93
05/29/24 03:00 05/29/24 08:00 05/29/24 08:00 05/29/24 08:00 05/29/24 08:00
Lab Results - Hematology
05/26/24 05/27/24 05/28/24
16:44 04:52 02:40
WBC 24.3 H 14.6 H 10.9 H
05/29/24
05:22
WBC 11.2 H
Lab Results - Chemistry
05/26/24 05/27/24 05/28/24
16:44 04:52 02:40
BUN 23 H 19 17
Creatinine 0.7 0.6 L 0.6 L
Estimated Creat Clear 97 97
Albumin 2.3 L 2.1 L
05/29/24
05:22
BUN 6 L
Creatinine 0.5 L
Estimated Creat Clear 97
Albumin 1.8 L
05/26/24 05/26/24 05/27/24
17:22 17:22 04:53
Lactic Acid 5.8 H* Cancelled 1.5
Microbiology Results
05/27/24 17:05 Blood Culture - Preliminary
Blood/Venous No Growth in 24 hours- Final report to follow
05/26/24 17:22 Blood Culture - Preliminary
Blood/Venous Coagulase neg. staphylococcus
Additional testing on request
Gram Stain - Preliminary
05/26/24 17:54 Urine Culture - Preliminary
Urine
--- NOTE | 2024-05-29 08:49 | PTCARENOTE ---
Assumed care of patient this AM. Patient has remained NPO for US of abdomen. VS stable. Potassium rider infusing as ordered. Call reddy in reach. Will monitor.
--- NOTE | 2024-05-29 09:05 | W.PN.HOSP.TC ---
Today's Communication/Plan
-
abdominal US
IV Vanc/Zosyn
Protonix gtt, Octreotide
appreciate GI
ID consult
pending transfer to [place]
Assessment / Plan
Assessment / Plan
This is a 63-year-old male who has a past medical history significant for alcoholic cirrhosis complicated by portal hypertension status post TIPS, history of hepatocellular carcinoma, biliary obstruction status post stent placement presenting to the
emergency department with 2 days of black-colored urine. He is found to have significant drop in hemoglobin to 7 from a baseline of around January, Hemoccult positive stool, found to have markedly positive urinalysis and a significant
leukocytosis. Ammonia is elevated, total bilirubin is elevated 10.2, AST and ALT are similar to prior.
He had a CT of the abdomen pelvis with similar appearance to January findings and minor changes. '1. There is similar appearance of the chronic airspace disease with consolidation and chronic atelectasis in the bilateral lower lobes. Superimposed
pneumonia would be difficult to exclude although is considered unlikely.
2. Cirrhotic morphology with a dominant mass in the right hepatic lobe measuring 6.7 x 5.2 cm, similar in appearance to prior.
3. Biliary stents present within the left hepatic lobe with intrahepatic ductal dilation, similar in appearance to prior.
4. There is small volume ascites with findings of portal hypertension including splenomegaly and numerous dilated collateral vessels in the upper abdomen.
5. There is mild gastric wall thickening with scattered areas of apparent wall thickening in the small bowel which may related to underdistention, ascites or represent mild gastroenteritis.
6. Prominent Schmorl's node along the superior endplate of L4, new from prior.'
PLAN:
Cirrhosis decompensation
MELD 3.0 = 22
- admitted to IMU, now med/surg status
- GI consult appreciated
- s/p 2L crystalloid and albumin on admission
- s/p 2 units PRBC, Hg stable, repeat this afternoon
- s/p EGD on 05/28 with: - Large 30mm cratered gastric ulcer in fundus. This
location is suggestive of post TARE (transarterial
radioembolization) related ulcer.
- abd US doppler ordered - to be done today
- continue lactulose, rifaximin
- clear liquid diet, stop fluids
- awaiting transfer to [place]
Hypokalemia
-repleted with 40mEq this AM, repeat with Hg this afternoon
UTI/Sepsis
-continue IV Zosyn
-awaiting urine culture
- GI consult as above
-consult ID (see below)
Positive blood culture - coagulase negative staph in aerobic and anaerobic bottles
-blood cultures repeated
-IV Vanc initiated post second set of blood cultures which remain negative
-given patient's immunosuppression, presence of foreign body (stent) will consult ID today
DVT PPX - SCDs
Code status - Full code
Anticipated Discharge: > 48 hours
Subjective/Interval History
-
Date of Service: May 29, 2024
no new complaints
no black or bloody stools
Objective Data
-
Labs:
Laboratory Results
05/29/24
05:22
WBC 11.2 H
Hgb 7.8 L
Hct 23.7 L
Plt Count 248
Sodium 140
Potassium 3.1 L
Chloride 109 H
Carbon Dioxide 23
BUN 6 L
Creatinine 0.5 L
Glucose 110 H
Calcium 7.3 L
Total Bilirubin 12.0 H
AST 67 H
ALT 32
Alkaline Phosphatase 222 H
Vital Signs:
Vital Signs
Temp Pulse Resp BP Pulse Ox
98.3 F 82 27 145/75 93
05/29/24 03:00 05/29/24 08:00 05/29/24 08:00 05/29/24 08:00 05/29/24 08:00
I&O
05/28/24 05/29/24 05/30/24
06:59 06:59 06:59
Intake Total 3256.8 / 3256.8 2862.4 / 2862.4
Output Total 800 / 800 1665 / 1665 200 / 200
Balance 2456.8 / 2456.8 1197.4 / 1197.4 -200 / -200
Review of Systems
-
History Source: Patient
All other systems: Reviewed and negative
Physical Exam
-
General: Appears Chronically Ill and Other (mildly tachypneic )
HEENT: PERRLA and Other (scleral icterus )
Respiratory: Negative Wheezes
Cardiac: S1/S2
GI: Soft and Nontender
Musculoskeletal: No Edema
Skin: Warm and Dry; Negative Rash
Neuro: AO x 3
Psych: Calm
Data Reviewed
-
Diagnostic Radiology: Report Reviewed by me
Labs: Labs Reviewed by me
--- NOTE | 2024-05-29 13:59 | CON.ID ---
Consultation
-
Date/Time Consultation Requested: 05/29/2024 0905
Date/Time Consultation Performed: 05/29/2024 1350
Requesting Provider: Dr. العلي
Performing Provider: Dr. Zacarias
Reason for Consultation: Bacteremia
Chief Complaint / Past History
History of Present Illness
Judah Lujan is a 63-year-old man with a significant past medical history of alcoholic cirrhosis and hepatocellular carcinoma being evaluated at the request of Dr. العلي in regards to bacteremia. History is obtained from chart review, along with
patient interview.
The patient presented to the emergency room on 05/26/2024 at the request of his sister secondary to weakness, shortness of breath and reported melanotic stool. Patient reports that he had had approximately 2 days of melena at that point in time, and
also developed some shortness of breath in the same timeframe.
At admission, he was found to have a marked leukocytosis. Blood cultures obtained at the time of admission are positive for coag negative staph, and urine cultures reveal the presence of gram-negative rods. Infectious Diseases is asked to comment
upon further antimicrobial therapy.
At this time he reports feeling improved. He denies any dysuria either now or prior to admission. He denies any hematuria.
Past History
Additional Past Medical History:
Hep C / EtOH cirrhosis
HCC; Hx Y90
Ascites
Portal hypertension
Esophageal varices
HTN
Additional Past Surgical History:
TIPS
Biliary stenting
ERCP
Allergy History:
furosemide Allergy (Unknown, Verified 05/26/24 21:11)
Rash
No Known Drug Allergies Allergy (Verified 02/10/24 18:10)
Unknown
Medications Reviewed: Yes
Current Antibiotics:
Vancomycin
Zosyn 3.375 g IV every 6 hours
Social History
Tobacco: Smoker
Alcohol: Former
Drug: None
Personal: Single
Living: With Family
Employment: Not Employed
Family History
Family History: Not Pertinent
Review of Systems
Vital Signs
Temp Pulse Resp BP Pulse Ox
98.3 F 91 29 154/79 92
05/29/24 07:55 05/29/24 13:00 05/29/24 13:00 05/29/24 13:00 05/29/24 13:00
Physical Exam
Physical Exam
Constitutional: No Acute Distress, Comfortable, Chronically Ill and Non-toxic
Eyes: No Conjunctival Hemorrhage and Other (Scleral icterus)
Pharynx: Benign
Oral: No Thrush and No Ulcers
Cardiovascular: S1/S2; Negative S3/S4 or Murmur
Pulmonary: Clear; Negative Wheezes, Rales or Rhonchi
Gastrointestinal: Soft, Distended, Normal Bowel Sounds, No Rebound and No Guarding
Genito-Urinary: Negative Padilla
Extremities: Edema (Trace)
Skin: Warm, Dry and Jaundice
Neurological: Awake and Alert
Psychological: Calm
Lab / Diagnostic Study Results
Abs Immat Gran (auto) 0.2 10^3/uL (0-0.05) H 05/26/24 16:44
Absolute Neuts (auto) 22.6 10^3/uL (1.4-6.5) H 05/26/24 16:44
Absolute Lymphs (auto) 0.6 10^3/uL (1.2-3.4) L 05/26/24 16:44
Absolute Monos (auto) 0.7 10^3/uL (0.1-0.6) H 05/26/24 16:44
Absolute Basos (auto) 0.1 10^3/uL (0-0.2) 05/26/24 16:44
Immature Gran % 0.9 % (0-0.5) H 05/26/24 16:44
Neutrophils % 93.2 % (42.2-75.2) H 05/26/24 16:44
Lymphocytes % 2.3 % (20.5-51.1) L 05/26/24 16:44
Monocytes % 3.0 % (1.7-9.3) 05/26/24 16:44
Eosinophils % 0.4 % (0-6) 05/26/24 16:44
Basophils % 0.2 % (0-2) 05/26/24 16:44
PT 18.7 Sec (11.4-14.6) H 05/26/24 16:47
INR 1.54 05/26/24 16:47
Lactic Acid 1.5 mmol/L (0.7-2.0) 05/27/24 04:53
Ur Squamous Epith Cells 6-10 /LPF (Few) 05/26/24 17:54
Microbiology Results
Micro:
05/26/24 17:54 Urine Culture - Preliminary
Urine Gram negative bacilli
05/27/24 17:05 Blood Culture - Preliminary
Blood/Venous No Growth in 24 hours- Final report to follow
05/26/24 17:22 Blood Culture - Preliminary
Blood/Venous Coagulase neg. staphylococcus
Additional testing on request
Gram Stain - Preliminary
Imaging:
05/26/24 CT chest/abd/pel : Chronic airspace disease with consolidation and chronic atelectasis in the bilateral lower lobes. Cirrhotic morphology with a dominant mass in the right hepatic lobe measuring 6.7 x 5.2 cm, similar in appearance to prior
study. Biliary stents present within the left hepatic lobe with intrahepatic ductal dilatation, similar in appearance to prior. Small volume ascites noted. Findings of portal hypertension including splenomegaly and numerous dilated collateral
vessels in the upper abdomen. Mild gastric wall thickening. Please see full dictation for additional detail.
Assessment / Plan
Leukocytosis; improved
Bacteremia with coag negative staph
- ER draw. Only single set positive; suspect contamination
Bacteriuria with significant pyuria; suspect complicated urinary tract infection
Elevated bilirubin
Hep C / EtOH cirrhosis
HCC; Hx Y90
Ascites
Portal hypertension
Esophageal varices
HTN
Recommendations:
Continue with empiric Zosyn for today.
Discontinue further vancomycin as positive blood cultures likely secondary to contamination.
Follow white count and temperature curve.
Await final culture data to guide further antimicrobial selection and potential de-escalation.
Further recommendations as additional data is returned.
--- NOTE | 2024-05-29 15:26 | W.PN.GI.CBS2 ---
Today's Communication / Plan
-
Awaiting transfer to [facility]
Assessment / Plan
-
Judah is a 63yo M with h/o Hep C/ETOH cirrhosis decompensated in past by ascites s/p TIPs, PSE, varices and HCC s/p Y90 TARE x2 last 05/2023 with bile duct stricture s/p ERCP x2 last 02/2024 at [facility] with biliary stent who presents for dark urine
and lactic acidosis.
Impression
- Sepsis with lactic acidosis
Source would be UTI. Other consideration is biliary
- Hep C/ETOH cirrhosis
MELD 22 on admission
Not clear if listed for OLT at [place] with Dr Cobb
- Melena and anemia
Ddx includes PHG, varices or AVMs
S/p 2u PRBC on this admission
- HCC
s/p Y90 and TARE x2
- S/p TIPs
- Bile duct strictures thought related to TARE
s/p biliary stenting last 02/2024 next appt 06/08/24
- Small volume ascites
- H/o EV s/p banding
- HTN
- CKD
- Former smoker
EGD 05/28/2024
Findings:
The esophagus was normal.
The exam of the stomach was otherwise normal.
One non-bleeding large 30mm cratered gastric ulcer with no stigmata of
bleeding was found in the gastric fundus. This location suggestive of
post TARE (transarterial radioembolization) related ulcer.
The examined duodenum was normal.
Recommendations
- Dr. Dawn updated Dr. Cobb (transplant hepatology [facility]) about EGD findings. Patient is awaiting bed at [facility]
= Continue Protonix drip
-Continue Carafate
-Continue monitor H&H
-Daily MELD score
- Recommend follow-up with [facility] for biliary stent exchange
Total Time Spent with Patient (in minutes): 35
Subjective
Subjective
Date of Service: May 29, 2024
Awaiting transfer to [facility]
Objective
Data Reviewed
Laboratory Data:
Laboratory Results
PT 18.7 Sec (11.4-14.6) H 05/26/24 16:47
INR 1.54 05/26/24 16:47
APTT 34.9 Sec (23.4-35.0) 05/26/24 16:47
Magnesium 1.9 mg/dl (1.6-2.3) 05/28/24 02:40
Total Bilirubin 12.0 mg/dl (0.2-1.3) H 05/29/24 05:22
AST 67 U/L (17-59) H 05/29/24 05:22
ALT 32 U/L (0-50) 05/29/24 05:22
Alkaline Phosphatase 222 U/L (38-126) H 05/29/24 05:22
Vital Signs and I&O:
Vital Signs
Temp Pulse Resp BP Pulse Ox
99.4 F 87 21 154/79 93
05/29/24 15:14 05/29/24 14:22 05/29/24 14:22 05/29/24 13:00 05/29/24 15:14
I&O
05/28/24 05/29/24 05/30/24
06:59 06:59 06:59
Intake Total 3256.8 / 3256.8 2862.4 / 2862.4 320 / 320
Output Total 800 / 800 1665 / 1665 500 / 500
Balance 2456.8 / 2456.8 1197.4 / 1197.4 -180 / -180
Physical Exam
Physical Exam
HEENT: Other (icteric)
GI: Soft, Non Distended and Non Tender
--- NOTE | 2024-05-29 15:27 | W.DCSUMMARY ---
Discharge Summary
Discharge Data
Date of Admission: 05/27/24
Date of Discharge: 05/29/24
-
Pending Results: No
Hospital Course
Discharging Physician : Dr. Coleen العلي
Disposition : [facility]
Primary care physician : Dr. Dandre Berg
Principal Discharge diagnosis : Sepsis secondary to Urinary Tract Infection; Coagulase Negative Staph in Blood Cultures (aerobic + anaerobic); Large 30mm cratered gastric ulcer; Acute Blood Loss Anemia
Hospital Course :
Mr. Judah Lujan is a 63-year-old male who has a past medical history significant for alcoholic cirrhosis complicated by portal hypertension status post TIPS (2015 with revision 07/07), history of hepatocellular carcinoma, biliary obstruction
status post stent placement (03/10) presenting to the emergency department with 2 days of black-colored urine and report of melena.
In the emergency department he was afebrile with a temp of 98, blood pressure was 130/60 with a pulse of 87. He was satting 95% on room air. Chest x-ray shows chronic bibasilar opacities. He had a leukocytosis to 24, hemoglobin down to 7 with a
platelet count of 384. INR was 1.5 and lactic acid was 6. Sodium 147, potassium of 3.8, bicarb of 18 BUN/creatinine of 22 and 0.7 respectively. His total bilirubin was 10.2, AST 80 ALT 40 and alk phos 240. His ammonia level was elevated at 63.
UA inflamed. CT with similar appearance to January findings.
Patient was admitted to medicine for further work-up and treatment of sepsis secondary to UTI, decompensated cirrhosis with acute on chronic anemia; with GI consulting.
He received albumin and IVF at admission. Lactic acidosis quickly resolved. He was transfused a total of 2 units PRBC with Hg stable at 8.6 prior to discharge. He received IV Protonix gtt and Octreotide and underwent an EGD on 05/28/24 which
showed a large 30mm cratered gastric ulcer in fundus; location suggestive of post TARE related ulcer. Post EGD he is continued on Protonix gtt, Octreotide and Carafate added QID.
He was treated for hepatic encephalopathy with Lactulose and Rifaximin with improved mentation during hospital course.
He was given IV Zosyn for treatment of UTI. At time of DC to [facility], urine culture shows gram negative bacilli with final speciation pending.
Blood cultures aerobic and anaerobic showed coag negative staph. Blood cultures repeated and IV Vancomycin started. ID consulted, and IV Vancomycin stopped as likely to be contamination. Follow up blood cultures remain negative.
Doppler Study US to ensure TIPS patency and assess ascites performed prior to transfer, results pending at this time.
Patient is transferred to transplant care team at [facility].
Time spent on discharge was 45 minutes.
Important imaging findings :
CT Chest/A/P 05/26/24
'1. There is similar appearance of the chronic airspace disease with consolidation and chronic atelectasis in the bilateral lower lobes. Superimposed pneumonia would be difficult to exclude although is considered unlikely.
2. Cirrhotic morphology with a dominant mass in the right hepatic lobe measuring 6.7 x 5.2 cm, similar in appearance to prior.
3. Biliary stents present within the left hepatic lobe with intrahepatic ductal dilation, similar in appearance to prior.
4. There is small volume ascites with findings of portal hypertension including splenomegaly and numerous dilated collateral vessels in the upper abdomen.
5. There is mild gastric wall thickening with scattered areas of apparent wall thickening in the small bowel which may related to underdistention, ascites or represent mild gastroenteritis.
6. Prominent Schmorl's node along the superior endplate of L4, new from prior.'
Procedure findings :
EGD 05/28/24
Impression: - Normal esophagus. No varices
- Large 30mm cratered gastric ulcer in fundus. This
location is suggestive of post TARE (transarterial
radioembolization) related ulcer.
- Normal examined duodenum.
- No specimens collected.
Recommendation: - C/w protonix gtt
- Add carafate QID
- Transfer back to [facility]
- Message sent to Dr Cobb/transplant at [facility] for
update and also to update transfer center.
- Will follow with you
Discharge Plan
-
Patient Disposition: Acute Care Hospital
Discharge Orders:
Discharge Patient (As Directed); Ordered 05/27/24
Ordered By: Trell Umana
Discharge Date and Time
Print Language: WELSH
[2024-05-29 15:33] LABS: Hemoglobin 8.6 g/dL (13.0-18.0)
[2024-05-29 15:41] LABS: Potassium 3.4 mmol/L (3.5-5.1)
[2024-05-29] MEDS: CARAFATE 1 GRAM PO (16:08)
[2024-05-29] MEDS: KCL 40 MEQ PO (16:09)
--- NOTE | 2024-05-29 16:14 | CM ---
Patient with Dx Sepsis, gastric ulcer, anemia. Plan transferred to transplant care team at [facility].
Notified by [facility] machine records units supervisor that [facility] has a bed today for this patient.
Plan transfer to [facility] today by ambulance.
--- NOTE | 2024-05-29 16:40 | PTCARENOTE ---
Bed available at [facility] today. Patient bed [id number] 3 [facility]. Report called in to [facility]. Transport [facility] by ambulance stretcher. All belongings with the patient. VS stable at discharge.
== END 2024-05-29 16:21 | disposition short-term general hospital (02) | DRG 871 ==
LOC: IMU 00:53
PROVIDERS: Hospitalist; Physician Assistant; Student in an Organized Health Care Education/Training Program; ADMITTING PHYSICIAN Internal Medicine; ATTENDING PHYSICIAN Student in an Organized Health Care Education/Training Program; CONSULT PHYSICIAN Internal Medicine Gastroenterology; EMERGENCY PHYSICIAN Emergency Medicine; FAMILY PHYSICIAN Internal Medicine Hematology & Oncology; OTHER PHYSICIAN Internal Medicine Infectious Disease
PROC: 30233N1 Transfusion of Nonautologous Red Blood Cells into Peripheral Vein, Percutaneous Approach (ICD-10-PCS; 2024-05-26)
PROC: 0DJ08ZZ Inspection of Upper Intestinal Tract, Via Natural or Artificial Opening Endoscopic (ICD-10-PCS; 2024-05-28)
DX: A41.9 Sepsis, unspecified organism (principal); K25.4 Chronic or unspecified gastric ulcer with hemorrhage; N39.0 Urinary tract infection, site not specified; D62 Acute posthemorrhagic anemia; J98.11 Atelectasis; K76.6 Portal hypertension; E87.20 Acidosis, unspecified; K70.31 Alcoholic cirrhosis of liver with ascites; Z85.05 Personal history of malignant neoplasm of liver; N18.9 Chronic kidney disease, unspecified; I12.9 Hypertensive chronic kidney disease with stage 1 through stage 4 chronic kidney disease, or unspecified chronic kidney disease; F17.200 Nicotine dependence, unspecified, uncomplicated; B19.20 Unspecified viral hepatitis C without hepatic coma
CPT/HCPCS: 36430; 71046; 71260; 74177; 76700; 80048; 80053; 80076; 81003; 81015; 82140; 82247; 82248; 83605; 83735; 84078; 84132; 84450; 84460; 84484; 85014; 85018; 85025; 85027; 85610; 85730; 86850; 86900; 86901; 86920; 87040; 87077; 87086; 87150; 87186; 87205; 93005; 93306; 93975; 94640; 96361; 96365; 96367; 96375; 99291; 99292; P9016; P9045; Q9967